=== PATIENT | female | born 1970 | race Two or more races ===

== ENCOUNTER 2024-09-21 17:16 | Inpatient (IN) | payer MEDICAID, SELFPAY ==
--- NOTE | 2024-09-21 | ECG_ITS ---
Test Reason : CP Blood Pressure : / mmHG Vent. Rate : 111 BPM Atrial Rate : 111 BPM P-R Int : 134 ms QRS Dur : 074 ms QT Int : 330 ms P-R-T Axes : 053 017 023 degrees QTc Int : 448 ms Sinus tachycardia Otherwise normal ECG No previous ECGs available Referred By: Amanda Woodson Electronically Signed By:YVES KOHLER MD
--- NOTE | ~2024-09-21 | CT_ITS ---
EXAMINATION: CT ABDOMEN AND PELVIS WITH CONTRAST CLINICAL INFORMATION: Right lower quadrant abdominal pain COMPARISON: None available. TECHNIQUE: Multidetector volumetric images were obtained from the superior aspect of the liver through the pubic symphysis following administration 85 mL of Omnipaque 350 intravenous contrast. Sagittal and coronal reformatted images were obtained on the technologist's workstation. Oral contrast: No This CT examination was performed using dose optimization techniques as appropriate, variously including the following: *Automated exposure control *Adjustment of mA and/or kV according to patient size (this includes techniques or standardized protocols for targeted exams where dose is matched to indication/reason for exam; i.e. extremities or head) *Use of iterative reconstruction technique DLP: 490 mGy-cm FINDINGS: LUNG BASES: Bibasilar atelectasis. LIVER, GALLBLADDER, AND BILIARY TREE: The liver is normal in size, shape, and attenuation. No focal hepatic lesion or biliary ductal dilatation is present. The gallbladder is surgically absent. PANCREAS: Unremarkable. SPLEEN: Unremarkable. ADRENAL GLANDS: Unremarkable. KIDNEYS AND URETERS: Somewhat ill-defined and wedge-shaped areas of hypoattenuation within the upper and lower poles of the right kidney with mild hydroureteronephrosis, perinephric and periureteral stranding. Foci of air are present within the right ureter and renal calyces, and there is area in the nondependent urinary bladder. The left kidney appears normal. BLADDER: No wall thickening. There is air within the anterior superior aspect of the moderately distended bladder. GASTROINTESTINAL TRACT: The small and large bowel are unremarkable. ABDOMINAL WALL: No significant hernia is appreciated. LYMPH NODES: Normal. VASCULAR: Unremarkable. PELVIC VISCERA: Unremarkable. OSSEOUS STRUCTURES: Unremarkable. CT/CT abdomen pelvis w IV con IMPRESSION: 1. Right-sided pyelonephritis with mild hydroureteronephrosis and perinephric/periureteral stranding. Air within the right renal calyces, right ureter, and urinary bladder may be due to recent instrumentation or infection. Fleischner guidelines were followed. Electronically signed by: Ede Traylor MD 09/21/2024 09:58 PM [facility]
--- NOTE | ~2024-09-21 | XR_ITS ---
EXAMINATION: XR CHEST CLINICAL INFORMATION: sob COMPARISON: 09/25/2024 TECHNIQUE: Frontal view of the chest was obtained. FINDINGS: Improved aeration with no focal consolidation, pulmonary edema, or pleural effusion. Stable cardiomediastinal silhouette. XR/XR chest 1V IMPRESSION: No acute cardiopulmonary findings. Electronically signed by: Ede Traylor MD 09/28/2024 02:09 PM [facility]
--- NOTE | ~2024-09-21 | XR_ITS ---
EXAMINATION: XR CHEST CLINICAL INFORMATION: Shortness of breath. COMPARISON: None available. TECHNIQUE: Frontal view of the chest was obtained. FINDINGS: Bilateral diffuse airspace opacities. Lordotic positioning, AP upright portable technique, and low lung volumes limit evaluation of the cardiomediastinal silhouette and lungs. There is no gross pneumothorax. Possible small bilateral pleural effusions. XR/XR chest 1V IMPRESSION: Bilateral diffuse airspace opacities. Possible small bilateral pleural effusions. This study was presented today September 25, 2024 for interpretation. Stat results provided at this time as requested by referring provider. Electronically signed by: Kirstie Sharp MD 09/25/2024 12:57 PM [facility]
[2024-09-21 17:37] VITALS: BP 118/71; PULSE 102; RESP 18; TEMP 36.4; O2SAT 99; BMI 32.2
--- NOTE | 2024-09-21 18:18 | ED.ABDPAIN ---
HPI - Abdominal Pain General Chief Complaint: Abdominal Pain Stated Complaint: Abdominal pain Time Seen by Provider: 09/21/24 18:14 Source: patient Mode of arrival: ambulatory Limitations: no limitations History of Present Illness ED Provider: melinda BUSTOS narrative: Patient is diabetic otherwise healthy complaining of pain with nausea mostly in the right side and mid abdomen had 1 small bowel movement yesterday and vomited 3 times today did not eat much all day today no fever but had chills no cough no shortness a breath on arrival patient noticed to have tachycardia with WBC count of 31,000 Related Data Allergies Allergy/AdvReac Type Severity Reaction Status Date / Time acetaminophen [From Percocet] Allergy Unknown Verified 09/21/24 17:40 oxycodone [From Percocet] Allergy Unknown Verified 09/21/24 17:40 tramadol Allergy Unknown Verified 09/21/24 17:40 Review of Systems Review of Systems Yes all other systems are reviewed and are negative PMFSH Past Medical History Medical History Mixed hyperlipidemia Insulin dependent type 2 diabetes mellitus Social History Social History Smoked in Last 30 Days: Yes Advance Directives: No Advance Directives Information Provided: No Do you have a plan to hurt others: No Plan Physical Exam ED Vital Signs: Vital Signs - 24 hr 09/21/24 17:37 09/21/24 18:48 09/21/24 20:00 Temperature 97.6 F 98.8 F 98.8 F Pulse Rate 102 H 111 H 105 H Respiratory Rate 18 22 H 20 Blood Pressure 118/71 142/77 H 128/78 Pulse Oximetry 99 98 95 Oxygen Delivery Method Room Air Room Air Room Air 09/21/24 22:02 Temperature 98.9 F Pulse Rate 106 H Respiratory Rate 22 H Blood Pressure 100/58 L Pulse Oximetry 92 Oxygen Delivery Method Room Air BMI result Body Mass Index 32.2 Appearance: Alert. Oriented X3. No acute distress. Eyes: PERRLA, No Nystagmus ENT: Pharynx normal. Oral Mucosa dry Neck: Normal inspection. Neck supple. CVS: Normal heart rate and rhythm. Pulses normal. Respiratory: No respiratory distress. Equal air entry bilateral, no wheezing/rales/rhonchi Abdomen: Soft and tenderness right lower abdomen with guarding bowel sounds. Bowel sounds are present, no mass palpable, no CVA tenderness Skin: Skin warm and dry. Normal skin color. Normal skin turgor. Extremities: No lower extremity edema. No calf tenderness Neuro: Oriented X 3. No motor deficit. Medical Decision Making Medical Decision Making [facility] Narrative: Patient with UTI with pyelonephritis with leukocytosis lactic acidosis started on IV fluids and Zosyn meeting the criteria for sepsis not septic shock will admit patient to hospitalist service Differential Diagnosis Differential Diagnoses: The differential diagnosis associated with the presentation includes Appendicitis/diverticulitis/pyelonephritis kidney stone Consult Healthcare Provider Management of the patient was discussed with: Hospitalist Lab Data [facility] Lab Attestation statement: I reviewed the patient's lab results. 09/21/24 18:44 09/21/24 18:44 Labs: Lab Results 09/21/24 09/21/24 09/21/24 Range/Units 18:00 18:44 19:45 WBC 31.1 H* (4.8-10.8) X10*3/uL RBC 4.22 (4.20-5.50) X10*6/uL Hgb 13.5 (12.0-16.0) g/dl Hct 37.8 (37.0-47.0) % MCV 89.6 (80.0-98.0) fL MCH 32.0 (27.0-33.0) pg MCHC 35.7 H (31.0-35.0) g/dl RDW 11.6 (11.0-16.0) % Plt Count 149 L (160-400) X10*3/uL MPV 12.5 H (9.4-12.3) fL Immature Gran % (Auto) 4.8 H (0.0-0.4) % Neut % (Auto) 88.4 H (45-73) % Lymph % (Auto) 2.8 L (20-40) % [place] % (Auto) 3.7 (2-11) % Eos % (Auto) 0.1 (0-4) % Baso % (Auto) 0.2 (0-2) % Lymph # (Auto) 0.9 L (1.2-4.9) X10*3/uL [place] # (Auto) 1.2 (0.1-1.2) X10*3/uL Eos # (Auto) 0.0 (0.0-0.4) X10*3/uL Baso # (Auto) 0.1 (0.0-0.2) X10*3/uL Abs Immat Gran (auto) 1.50 H (0.00-0.03) X10*3/uL Absolute Neuts (auto) 27.5 H (2.0-8.3) x10*3/uL Absolute Nucleated RBC 0.000 (0.0-0.012) X10*3/uL Nucleated RBC % (auto) 0.0 (0.0-0.2) /100WBC Sodium 130 L (135-145) mmol/L Potassium 4.0 (3.3-5.1) mmol/L Chloride 99 (96-108) mmol/L Carbon Dioxide 19 L (22-29) mmol/L Anion Gap 16 (12-20) BUN 19 H (9-16) mg/dL Creatinine 1.47 H (0.5-1.4) mg/dL Estim Creat Clear Calc 40.4 Estimated GFR 37 Random Glucose 466 H* (60-115) mg/dL Lactic Acid 2.7 H* (0.5-2.0) mmol/L Calcium 9.0 (8.4-10.2) mg/dL Total Bilirubin 1.2 H (0.0-1.0) mg/dL AST 71 H (5-31) U/L ALT 64 H (0-31) U/L Alkaline Phosphatase 100 (39-117) U/L Total Protein 7.0 (6.5-8.0) g/dL Albumin 3.7 (3.5-5.0) g/dL Influenza Type A (PCR) NEGATIVE (Negative) Influenza Type B (PCR) NEGATIVE (Negative) RSV RNA Qual (PCR) NEGATIVE (Negative) SARS-CoV-2 RNA (RT-PCR) NEGATIVE (Negative) Independent Interpretation I performed an independent interpretation of an: CT Scan Radiology Impression Discussion of test interpretation with radiology: I have reviewed the radiologist's reading. Radiologist Impression: [address] [address] [address] Scan Report Signed Patient: Jill Cho MR#: [id number] : 1970 Acct:[id number] Age/Sex: 53 / F ADM Date: 09/21/24 Loc: HO.ED Attending Dr: Ordering Physician: Erickson Hernandez MD Date of Service: 09/21/24 Procedure(s): CT abdomen pelvis w IV con Accession Number(s): [id number] cc: CESAR PERALTA; Erickson Hernandez MD~ EXAMINATION: CT ABDOMEN AND PELVIS WITH CONTRAST CLINICAL INFORMATION: Right lower quadrant abdominal pain COMPARISON: None available. TECHNIQUE: Multidetector volumetric images were obtained from the superior aspect of the liver through the pubic symphysis following administration 85 mL of Omnipaque 350 intravenous contrast. Sagittal and coronal reformatted images were obtained on the technologist's workstation. Oral contrast: No This CT examination was performed using dose optimization techniques as appropriate, variously including the following: *Automated exposure control *Adjustment of mA and/or kV according to patient size (this includes techniques or standardized protocols for targeted exams where dose is matched to indication/reason for exam; i.e. extremities or head) *Use of iterative reconstruction technique DLP: 490 mGy-cm FINDINGS: LUNG BASES: Bibasilar atelectasis. LIVER, GALLBLADDER, AND BILIARY TREE: The liver is normal in size, shape, and attenuation. No focal hepatic lesion or biliary ductal dilatation is present. The gallbladder is surgically absent. PANCREAS: Unremarkable. SPLEEN: Unremarkable. ADRENAL GLANDS: Unremarkable. KIDNEYS AND URETERS: Somewhat ill-defined and wedge-shaped areas of hypoattenuation within the upper and lower poles of the right kidney with mild hydroureteronephrosis, perinephric and periureteral stranding. Foci of air are present within the right ureter and renal calyces, and there is area in the nondependent urinary bladder. The left kidney appears normal. BLADDER: No wall thickening. There is air within the anterior superior aspect of the moderately distended bladder. GASTROINTESTINAL TRACT: The small and large bowel are unremarkable. ABDOMINAL WALL: No significant hernia is appreciated. LYMPH NODES: Normal. VASCULAR: Unremarkable. PELVIC VISCERA: Unremarkable. OSSEOUS STRUCTURES: Unremarkable. CT/CT abdomen pelvis w IV con IMPRESSION: 1. Right-sided pyelonephritis with mild hydroureteronephrosis and perinephric/periureteral stranding. Air within the right renal calyces, right ureter, and urinary bladder may be due to recent instrumentation or infection. Fleischner guidelines were followed. Electronically signed by: Ede Traylor MD 09/21/2024 09:58 PM [facility] Medications Administered Generic Name Dose Route Start Last Admin Trade Name Freq PRN Reason Stop Dose Admin Ceftriaxone Sodium 1 gm 09/21/24 22:00 09/21/24 22:16 Ceftriaxone Sodium 1 Gm Vial IVPUSH 1 gm Q24H FERNANDA Administration Enoxaparin Sodium 40 mg 09/21/24 22:00 09/21/24 22:16 Enoxaparin Sodium 40 Mg/0.4 Ml Syringe SUBCUT 40 mg Q24H FERNANDA Administration Insulin Glargine 32 unit 09/21/24 22:30 09/21/24 23:10 Insulin Glargine,Hum.Rec.Anlog 100 Unit/Ml 10 Ml Vial SUBCUT 32 unit BEDTIME FERNANDA Administration Discontinued Medications Generic Name Dose Route Start Last Admin Trade Name Freq PRN Reason Stop Dose Admin Sodium Chloride 1,000 mls @ 999 mls/hr 09/21/24 19:00 09/21/24 21:08 Ns IV 09/21/24 20:00 Infused .Q1H1M ONE Infusion Piperacillin Sod/Tazobactam 50 mls @ 100 mls/hr 09/21/24 19:00 09/21/24 20:59 Sod 3.375 gm/ Sodium Chloride IV 09/21/24 19:29 Infused ONCE ONE Infusion Sodium Chloride 1,000 mls @ 999 mls/hr 09/21/24 19:01 09/21/24 21:08 Ns IV 09/21/24 20:01 Infused .Q1H1M ONE Infusion Piperacillin Sod/Tazobactam 50 mls @ 100 mls/hr 09/21/24 19:45 09/21/24 20:59 Sod 3.375 gm/ Sodium Chloride IV 09/21/24 20:14 Not Given ONCE ONE Lactated Ringer's 1,000 mls @ 999 mls/hr 09/21/24 22:45 09/21/24 23:11 Lr IV 09/21/24 23:45 999 mls/hr .Q1H1M FERNANDA Administration Insulin Human Lispro 10 unit 09/21/24 19:03 09/21/24 19:50 Insulin Lispro 100 Unit/Ml 3 Ml Vial SUBCUT 09/21/24 19:04 10 unit ONCE ONE Administration Iohexol 100 ml 09/21/24 20:24 09/21/24 20:32 Iohexol 350 Mg/Ml 100 Ml Infus..Btl IV 09/21/24 20:25 85 ml ONCE ONE Administration Morphine Sulfate 4 mg 09/21/24 19:01 09/21/24 19:50 Morphine Sulfate 4 Mg/Ml Cartridge IVPUSH 09/21/24 19:02 4 mg ONCE ONE Administration Protocol Morphine Sulfate 4 mg 09/21/24 21:41 09/21/24 21:50 Morphine Sulfate 4 Mg/Ml Cartridge IVPUSH 09/21/24 21:42 4 mg ONCE ONE Administration Protocol Ondansetron HCl 4 mg 09/21/24 18:53 09/21/24 18:55 Ondansetron Hcl 4 Mg/2 Ml Vial IVPUSH 09/21/24 18:54 4 mg ONCE ONE Administration Discharge Plan Discharge Clinical Impression: Pyelonephritis of right kidney Patient Disposition: Admitted As Inpatient
[2024-09-21 18:48] VITALS: BP 142/77; PULSE 111; RESP 22; TEMP 37.1; O2SAT 98
[2024-09-21 18:48] LABS: Basophils Absolute Auto 0.1 X10*3/uL (0.0-0.2); Basophils Percent Auto 0.2 % (0-2); Eosinophils Percent Auto 0.1 % (0-4); Hematocrit 37.8 % (37.0-47.0); Hemoglobin 13.5 g/dl (12.0-16.0); Imm Gran Pct Auto 4.8 % (0.0-0.4); Lymphocytes Absolute Auto 0.9 X10*3/uL (1.2-4.9); Lymphocytes Percent Auto 2.8 % (20-40); Mean Corpuscular HGB Conc 35.7 g/dl (31.0-35.0); Mean Corpuscular Volume 89.6 fL (80.0-98.0); Mean Platelet Volume 12.5 fL (9.4-12.3); Monocytes Absolute Auto 1.2 X10*3/uL (0.1-1.2); Monocytes Percent Auto 3.7 % (2-11); Neutrophils Absolute Auto 27.5 x10*3/uL (2.0-8.3); Neutrophils Percent Auto 88.4 % (45-73); Platelet Count 149 X10*3/uL (160-400); Red Blood Count 4.22 X10*6/uL (4.20-5.50); Red Cell Distribution Width 11.6 % (11.0-16.0); SCAN SMEAR FLAG 1
[2024-09-21 18:49] LABS: MANUAL DIFF FLAG NO
[2024-09-21 18:52] LABS: White Blood Count 31.1 X10*3/uL (4.8-10.8)
[2024-09-21 18:55] LABS: Influenza A PCR NEGATIVE (Negative); Influenza B PCR NEGATIVE (Negative); Resp Syncy Virus RNA Qual PCR NEGATIVE (Negative); SARS COV2 PCR INHOUSE NEGATIVE (Negative)
[2024-09-21] MEDS: ondansetron HCL 4 MG/2 ML VIAL IVPUSH (18:55)
[2024-09-21 19:04] LABS: Alanine Aminotransferase 64 U/L (0-31); Albumin Level 3.7 g/dL (3.5-5.0); Alkaline Phosphatase 100 U/L (39-117); Anion Gap 16 (12-20); Aspartate Amino Transferase 71 U/L (5-31); Bilirubin Total 1.2 mg/dL (0.0-1.0); Blood Urea Nitrogen 19 mg/dL (9-16); Carbon Dioxide 19 mmol/L (22-29); Chloride 99 mmol/L (96-108); Creatinine Clr Calc Pharmacy 40.4; Estimated Glomerular Filt Rate 37; Glucose Random 466 mg/dL (60-115); Sodium 130 mmol/L (135-145)
[2024-09-21] MEDS: Piperacillin Sodium/Tazobactam 3.375 GM in 0.9 % Sodium Chloride 50 ML IV (19:45)
[2024-09-21] MEDS: 0.9 % Sodium Chloride 1,000 ML 999 ML IV ×2 (19:49→19:50)
[2024-09-21] MEDS: Morphine Sulfate 4 MG/ML CARTRIDGE IVPUSH ×2 (19:50→21:50)
[2024-09-21] MEDS: Insulin Lispro 100 UNIT/ML 3 ML VIAL 10 UNIT SUBCUT (19:50)
[2024-09-21 20:00] VITALS: BP 128/78; PULSE 105; RESP 20; TEMP 37.1; O2SAT 95
--- NOTE | 2024-09-21 20:00 | PC.NURSE ---
Pt difficult blood draw, call the lab and spoke to Delia and notified her blood culture being sent and amount collected. Okay to send. pt placed on bedside monitor and medicated per dec.
[2024-09-21 20:30] LABS: Lactic Acid 2.7 mmol/L (0.5-2.0)
[2024-09-21] MEDS: iohexoL 350 MG/ML 100 ML INFUS..BTL IV (20:32)
--- NOTE | 2024-09-21 20:42 | PC.NURSE ---
critical lab reported Dr. Linton, lactic 2.7.
[2024-09-21 21:50] LABS: Reflex Lactate? Lactic Acid Added
--- NOTE | 2024-09-21 21:55 | PC.NURSE ---
Medicated per pain management.
[2024-09-21 22:02] VITALS: BP 100/58; PULSE 106; RESP 22; TEMP 37.2; O2SAT 92
--- NOTE | 2024-09-21 22:13 | P.HPHOSP_ITS ---
History of Present Illness Date of Service: 09/21/24 Chief Complaint: Abd pain This is a 53-year-old female with pertinent history of insulin-dependent diabetes mellitus, mixed hyperlipidemia who presents to the emergency department for evaluation of abdominal pain. Patient states she started having right-sided abdominal pain 1 day prior to presentation. It was in the right flank region going to the back, constant, progressive and without any relieving factors. No history of similar pains in the past. Did have a UTI many years ago. Has associated chills, nausea and nonbloody emesis. Denies dysuria but does have increased urinary frequency. No change in color or odor of urine that she noticed. No documented fever, chest pain, palpitations, shortness of breath, changes in bowel habits. In the emergency department, patient was found to be septic with white count 31.1. Imaging with right-sided pyelonephritis. Review of Systems 2 Constitutional: Constitutional: Reports chills, Reports fatigue and Reports malaise Cardiovascular: Cardiovascular: Reports no additional cardiovascular complaints Respiratory: Respiratory: Reports no additional respiratory complaints Gastrointestinal: Gastrointestinal: Reports abdominal pain, Reports nausea and Reports vomiting Genitourinary: Genitourinary: Reports urinary urgency Endocrine: Endocrine: Reports fatigue PMFSH Medical History Mixed hyperlipidemia Insulin dependent type 2 diabetes mellitus Pertinent family history: No family history of early CAD Social History Smoked in Last 30 Days: Yes Advance Directives: No Advance Directives Information Provided: No Do you have a plan to hurt others: No Plan Meds Allergies Allergy/AdvReac Type Severity Reaction Status Date / Time acetaminophen [From Percocet] Allergy Unknown Verified 09/21/24 17:40 oxycodone [From Percocet] Allergy Unknown Verified 09/21/24 17:40 tramadol Allergy Unknown Verified 09/21/24 17:40 Active Medications: Current Medications Acetaminophen (Acetaminophen 325 Mg Tablet) 650 mg PO Q6H PRN PRN Reason: Pain, Mild (Pain Scale 1-3), fever or headache Calcium Carbonate (Calcium Carbonate 750 Mg Tab.Chew) 750 mg PO Q4H PRN PRN Reason: Heartburn Ceftriaxone Sodium (Ceftriaxone Sodium 1 Gm Vial) 1 gm IVPUSH Q24H FERNANDA Enoxaparin Sodium (Enoxaparin Sodium 40 Mg/0.4 Ml Syringe) 40 mg SUBCUT Q24H FERNANDA Glucose (Glucose Gel 15 Gm Gel..Gram.) 15 gm PO Q15M PRN; Protocol PRN Reason: per Hypoglycemia Standing Ord. Dextrose (D10) 250 mls @ 750 mls/hr IV Q15M PRN; Protocol PRN Reason: per Hypoglycemia Standing Ord. Insulin Human Lispro (Insulin Lispro 100 Unit/Ml 3 Ml Vial) 0 unit SUBCUT QIDACHS FERNANDA; Protocol Magnesium Hydroxide (Milk Of Magnesia 30 Ml Oral.Susp) 30 ml PO DAILY PRN PRN Reason: Constipation Melatonin (Melatonin 3 Mg Tablet) 6 mg PO BEDTIME PRN PRN Reason: Insomnia Morphine Sulfate (Morphine Sulfate 4 Mg/Ml Cartridge) 4 mg IVPUSH Q4H PRN; Protocol PRN Reason: Pain, Severe (Pain Scale 7-10) Ondansetron HCl (Ondansetron Hcl 4 Mg/2 Ml Vial) 4 mg IVPUSH Q8H PRN PRN Reason: Nausea and Vomiting Sodium Chloride (0.9 % Sodium Chloride Flush 3 Ml Syringe) 3 ml IVFLUSH QSHIFT [facility] Physical Exam 2 Vital Signs and Narrative: Vital Signs: Last Vital Signs Temp 98.8 F 09/21/24 20:00 Pulse 105 H 09/21/24 20:00 Resp 20 09/21/24 20:00 BP 128/78 09/21/24 20:00 Pulse Ox 95 09/21/24 20:00 O2 Del Method Room Air 09/21/24 20:00 BMI result Body Mass Index 32.2 Middle-aged female lying in bed in no distress Neck supple, no JVD Regular rate and rhythm, S1-S2 heard Regular breath sounds bilaterally, no wheezing or crackles appreciated Abdomen with right-sided CVA tenderness Patient is awake, alert and oriented to self, place, time and person ; no focal motor deficit Psych: Normal mood No pedal edema Results Labs 09/21/24 18:44 09/21/24 18:44 Labs: Laboratory Results - last 24 hr 09/21/24 09/21/24 09/21/24 18:00 18:44 19:45 MCV 89.6 MCH 32.0 MCHC 35.7 H RDW 11.6 Plt Count 149 L MPV 12.5 H Immature Gran % (Auto) 4.8 H Neut % (Auto) 88.4 H Lymph % (Auto) 2.8 L [place] % (Auto) 3.7 Eos % (Auto) 0.1 Baso % (Auto) 0.2 Lymph # (Auto) 0.9 L [place] # (Auto) 1.2 Eos # (Auto) 0.0 Baso # (Auto) 0.1 Abs Immat Gran (auto) 1.50 H Absolute Neuts (auto) 27.5 H Absolute Nucleated RBC 0.000 Nucleated RBC % (auto) 0.0 Anion Gap 16 Estim Creat Clear Calc 40.4 Estimated GFR 37 Random Glucose 466 H* Lactic Acid 2.7 H* Calcium 9.0 Total Bilirubin 1.2 H AST 71 H ALT 64 H Alkaline Phosphatase 100 Total Protein 7.0 Albumin 3.7 Influenza Type A (PCR) NEGATIVE Influenza Type B (PCR) NEGATIVE RSV RNA Qual (PCR) NEGATIVE SARS-CoV-2 RNA (RT-PCR) NEGATIVE Imaging Radiologist's Impressions: Impressions Abdomen/Pelvis CT 09/21/24 19:00 IMPRESSION: 1. Right-sided pyelonephritis with mild hydroureteronephrosis and perinephric/periureteral stranding. Air within the right renal calyces, right ureter, and urinary bladder may be due to recent instrumentation or infection. Fleischner guidelines were followed. Electronically signed by: Ede Traylor MD 09/21/2024 09:58 PM [facility] Assessment and Plan (1) Sepsis: Status: Acute (2) Pyelonephritis of right kidney: Status: Acute (3) Hyperglycemia: Status: Acute Plan This is a 53-year-old female with pertinent history of insulin-dependent diabetes mellitus, mixed hyperlipidemia who presents to the emergency department for evaluation of abdominal pain. #. Severe sepsis due to right-sided pyelonephritis: Resuscitated with IV crystalloids. Lactic acid and blood culture obtained. Initiating empiric IV Rocephin. UA and urine culture pending #. Acute lactic acidosis due to sepsis #. Elevated creatinine: Unknown baseline. JACINTA versus CKD. Monitor creatinine urine output with crystalloid resuscitation. Avoid nephrotoxins #. Insulin-dependent diabetes mellitus with hyperglycemia: Initiating basal plus insulin regimen #. Obesity: Counseled regarding diet and exercise Med rec pending DVT prophylaxis: Lovenox Full code Admit as inpatient and will require two night minimum hospital stay for IV antibiotics (as above), which is not possible in a lesser acute setting. Quality Stroke Does the patient have a stroke diagnosis?: No VTE Prior VTE?: No VTE Risk Level:: Medical - moderate - high VTE Device Contraindication: Treatment Not Indicated VTE Drug Contraindication: N/A - Med Ordered
[2024-09-21] MEDS: Enoxaparin Sodium 40 MG/0.4 ML SYRINGE SUBCUT (22:16)
[2024-09-21] MEDS: cefTRIAXone sodium 1 GM VIAL IVPUSH (22:16)
[2024-09-21 22:18] LABS: Appearance Urine Cloudy; Color Urine Yellow; Glucose Urine UA >=1000 mg/dL (Negative); Leukocyte Esterase Urine Small (1+) (Negative); Nitrite Urine Positive (Negative); PH 5.5 (5.0-9.0); Specific Gravity - Urine >= 1.030 (1.005-1.025); UMIC TRIGGER UACC YES; Urine Blood Small (1+) (Negative); Urine Ketones 40 mg/dL (Negative); Urine Protein Trace mg/dL (Neg-Trace)
[2024-09-21 22:31] LABS: Bacteria Urine 4+ (None Seen); Hyaline Casts Urine 0-2 /LPF (0-2); RBC Urine 0-2 /HPF (0-2); UACC Culture Trigger YES
[2024-09-21 22:35] LABS: ~Lactic Acid-LAB USE ONLY 2.1 mmol/L (0.5-2.0)
[2024-09-21 23:06] LABS: Cancel Lactic Acid Canceled
[2024-09-21] MEDS: Insulin Glargine,Hum.rec.anlog 100 UNIT/ML 10 ML VIAL 32 UNIT SUBCUT (23:10)
[2024-09-21] MEDS: Lactated Ringers 1,000 ML 999 ML IV (23:11)
--- NOTE | 2024-09-21 23:14 | PC.NURSE ---
Medicated per danielle, blood pressure soft notified Dr. Zaman
--- NOTE | 2024-09-21 23:53 | PC.NURSE ---
pt does not have medication list. Pt reports she goes to [facility], not open at this time.
[2024-09-22] VITALS (7 sets, daily range): BP systolic 98–132; BP diastolic 53–68; PULSE 106–122; RESP 16–18; TEMP 36.6–37.7; O2SAT 92–95; BMI 28.3
[2024-09-22 00:41] LABS: Glucose, Whole Blood 374 mg/dL (60-115)
[2024-09-22] MEDS: 0.9 % Sodium Chloride Flush 3 ML SYRINGE IVFLUSH ×3 (01:45→21:08)
[2024-09-22] MEDS: Flu Vacc TS2024-25(6mos up)/PF 0.5 ML SYRINGE IM (02:11)
--- NOTE | 2024-09-22 03:51 | PC.NURSE ---
0200; New admission to Room 354. Patient with tachycardia HR 109, and soft bp 98/56. Patient with similar vital signs in the ED previously. Dr Zaman made aware of patient's vitals. No new orders at this time.
[2024-09-22] MEDS: ondansetron HCL 4 MG/2 ML VIAL IVPUSH ×2 (04:30→10:31)
--- NOTE | 2024-09-22 06:41 | PM.EVENT ---
Event Note Date of Service: 09/22/24 Event Note: Lab reported 1st set of Blood culture positive for Gram-negative rods . Will increase ceftriaxone to 2g daily and consult ID Time Spent With Patient Time: Total time managing care of this patient today ____ minutes.
[2024-09-22] MEDS: Morphine Sulfate 4 MG/ML CARTRIDGE IVPUSH ×3 (07:54→15:29)
[2024-09-22] MEDS: cefTRIAXone sodium 1 GM VIAL IVPUSH (07:54)
[2024-09-22] MEDS: Insulin Lispro 100 UNIT/ML 3 ML VIAL SUBCUT ×4 (07:55→21:07)
[2024-09-22 07:58] LABS: Glucose, Whole Blood 355 mg/dL (60-115)
[2024-09-22 08:07] LABS: Hematocrit 35.2 % (37.0-47.0); Hemoglobin 12.2 g/dl (12.0-16.0); Mean Corpuscular HGB Conc 34.7 g/dl (31.0-35.0); Mean Corpuscular Hemoglobin 31.9 pg (27.0-33.0); Mean Corpuscular Volume 91.9 fL (80.0-98.0); Mean Platelet Volume 13.5 fL (9.4-12.3); Platelet Count 127 X10*3/uL (160-400); Red Blood Count 3.83 X10*6/uL (4.20-5.50); Red Cell Distribution Width 11.9 % (11.0-16.0)
[2024-09-22 08:43] LABS: Band Neutrophils Percent 20 % (3-5); Monocytes Percent Manual 4 % (2-11); Neutrophils Percent Manual 76 % (45-73)
[2024-09-22 08:45] LABS: Burr Cells 1+ (0-2) /OIF; RBC Morphology NOTED; Toxic Vacuolation PRESENT
[2024-09-22 08:46] LABS: Platelet Estimate SLIGHTLY DECREASED (NORMAL); Platelet Morphology Comment NORMAL
[2024-09-22 09:00] LABS: Monocytes Absolute Manual 1.3 X10*3/uL (0.1-1.2); Neutrophils Absolute Manual 30.6 X10*3/uL (2.0-8.3); White Blood Count 31.9 X10*3/uL (4.8-10.8)
[2024-09-22 09:07] LABS: Anion Gap 16 (12-20); Blood Urea Nitrogen 18 mg/dL (9-16); Calcium 8.3 mg/dL (8.4-10.2); Carbon Dioxide 19 mmol/L (22-29); Chloride 102 mmol/L (96-108); Creatinine Clr Calc Pharmacy 42.5; Estimated Glomerular Filt Rate 43; Glucose Random 373 mg/dL (60-115); Potassium 4.3 mmol/L (3.3-5.1); Sodium 133 mmol/L (135-145)
--- NOTE | 2024-09-22 09:57 | P.PNIM_ITS ---
Subjective Subjective Date of Service: 09/22/24 Review of Systems Follow up Pyelo nausea and abd pain no appetite Physical Exam 2 Vital Signs: Vital Signs: Last Vital Signs Temp 98.5 F 09/22/24 07:45 Pulse 110 H 09/22/24 07:45 Resp 16 09/22/24 07:45 BP 131/65 09/22/24 07:45 Pulse Ox 92 09/22/24 07:45 O2 Del Method Room Air 09/22/24 07:45 BMI result Body Mass Index 28.3 Appearing in no acute distress lung sounds are clear to auscultation heart regular rate rhythm, clear S1, S2 positive bowel sounds, abdomen is soft, nontender neuro patient is alert x3, no focal deficits Objective Data Active Medications Acetaminophen (Acetaminophen 325 Mg Tablet) 650 mg PO Q6H PRN PRN Reason: Pain, Mild (Pain Scale 1-3), fever or headache Calcium Carbonate (Calcium Carbonate 750 Mg Tab.Chew) 750 mg PO Q4H PRN PRN Reason: Heartburn Ceftriaxone Sodium (Ceftriaxone Sodium 2 Gm Vial) 2 gm IVPUSH Q24H [facility] Enoxaparin Sodium (Enoxaparin Sodium 40 Mg/0.4 Ml Syringe) 40 mg SUBCUT Q24H [facility] Last Admin: 09/21/24 22:16 Dose: 40 mg Documented By: MASON Glucose (Glucose Gel 15 Gm Gel..Gram.) 15 gm PO Q15M PRN; Protocol PRN Reason: per Hypoglycemia Standing Ord. Dextrose (D10) 250 mls @ 750 mls/hr IV Q15M PRN; Protocol PRN Reason: per Hypoglycemia Standing Ord. Insulin Glargine (Insulin Glargine,Hum.Rec.Anlog 100 Unit/Ml 10 Ml Vial) 32 unit SUBCUT BEDTIME [facility] Last Admin: 09/21/24 23:10 Dose: 32 unit Documented By: MASON Insulin Human Lispro (Insulin Lispro 100 Unit/Ml 3 Ml Vial) 0 unit SUBCUT QIDACHS [facility]; Protocol Last Admin: 09/22/24 07:55 Dose: 10 unit Documented By: DOMINIK Magnesium Hydroxide (Milk Of Magnesia 30 Ml Oral.Susp) 30 ml PO DAILY PRN PRN Reason: Constipation Melatonin (Melatonin 3 Mg Tablet) 6 mg PO BEDTIME PRN PRN Reason: Insomnia Morphine Sulfate (Morphine Sulfate 4 Mg/Ml Cartridge) 4 mg IVPUSH Q4H PRN; Protocol PRN Reason: Pain, Severe (Pain Scale 7-10) Last Admin: 09/22/24 07:54 Dose: 4 mg Documented By: DOMINIK Ondansetron HCl (Ondansetron Hcl 4 Mg/2 Ml Vial) 4 mg IVPUSH Q8H PRN PRN Reason: Nausea and Vomiting Last Admin: 09/22/24 04:30 Dose: 4 mg Documented By: AURELIO Sodium Chloride (0.9 % Sodium Chloride Flush 3 Ml Syringe) 3 ml IVFLUSH [facility] Last Admin: 09/22/24 08:00 Dose: 3 ml Documented By: DOMINIK Labs 09/22/24 06:26 09/22/24 06:26 Labs: Laboratory Results - last 24 hr 09/21/24 09/21/24 09/21/24 18:00 18:44 19:45 MCV 89.6 MCH 32.0 MCHC 35.7 H RDW 11.6 Plt Count 149 L MPV 12.5 H Immature Gran % (Auto) 4.8 H Neut % (Auto) 88.4 H Lymph % (Auto) 2.8 L Amelia % (Auto) 3.7 Eos % (Auto) 0.1 Baso % (Auto) 0.2 Lymph # (Auto) 0.9 L Amelia # (Auto) 1.2 Eos # (Auto) 0.0 Baso # (Auto) 0.1 Abs Immat Gran (auto) 1.50 H Absolute Neuts (auto) 27.5 H Absolute Nucleated RBC 0.000 Nucleated RBC % (auto) 0.0 Neutrophils % (Manual) Band Neutrophils % Monocytes % (Manual) Abs Neuts (Manual) Monocytes # (Manual) Toxic Vacuolation Platelet Estimate Plt Morphology Comment RBC Morphology Teri Cells Anion Gap 16 Estim Creat Clear Calc 40.4 Estimated GFR 37 POC Glucose Random Glucose 466 H* Lactic Acid 2.7 H* Lactic Acid F/U @ 2Hr Calcium 9.0 Total Bilirubin 1.2 H AST 71 H ALT 64 H Alkaline Phosphatase 100 Total Protein 7.0 Albumin 3.7 Urine Color Urine Appearance Urine pH Ur Specific [place] Urine Protein Urine Glucose (UA) Urine Ketones Urine Blood Urine Nitrite Ur Leukocyte Esterase Urine RBC Urine WBC Ur Squamous Epith Cells Urine Bacteria Hyaline Casts Influenza Type A (PCR) NEGATIVE Influenza Type B (PCR) NEGATIVE RSV RNA Qual (PCR) NEGATIVE SARS-CoV-2 RNA (RT-PCR) NEGATIVE 09/21/24 09/21/24 09/22/24 22:10 23:05 06:26 MCV 91.9 MCH 31.9 MCHC 34.7 RDW 11.9 Plt Count 127 L MPV 13.5 H Immature Gran % (Auto) Cancelled Neut % (Auto) Cancelled Lymph % (Auto) Cancelled Amelia % (Auto) Cancelled Eos % (Auto) Cancelled Baso % (Auto) Cancelled Lymph # (Auto) Cancelled Amelia # (Auto) Cancelled Eos # (Auto) Cancelled Baso # (Auto) Cancelled Abs Immat Gran (auto) Cancelled Absolute Neuts (auto) Cancelled Absolute Nucleated RBC 0.000 Nucleated RBC % (auto) 0.0 Neutrophils % (Manual) 76 H Band Neutrophils % 20 H Monocytes % (Manual) 4 Abs Neuts (Manual) 30.6 H Monocytes # (Manual) 1.3 H Toxic Vacuolation PRESENT Platelet Estimate SLIGHTLY DECREASED Plt Morphology Comment NORMAL RBC Morphology NOTED [place] Cells 1+ (0-2) Anion Gap 16 Estim Creat Clear Calc 42.5 Estimated GFR 43 POC Glucose 374 H* Random Glucose 373 H* Lactic Acid Lactic Acid F/U @ 2Hr 2.1 H* Calcium 8.3 L D Total Bilirubin AST ALT Alkaline Phosphatase Total Protein Albumin Urine Color Yellow Urine Appearance Cloudy Urine pH 5.5 Ur Specific [place] >= 1.030 H Urine Protein Trace Urine Glucose (UA) >=1000 H Urine Ketones 40 Urine Blood Small (1+) H Urine Nitrite Positive H Ur Leukocyte Esterase Small (1+) H Urine RBC 0-2 Urine WBC 11-20 Ur Squamous Epith Cells 6-10 Urine Bacteria 4+ Hyaline Casts 0-2 Influenza Type A (PCR) Influenza Type B (PCR) RSV RNA Qual (PCR) SARS-CoV-2 RNA (RT-PCR) 09/22/24 07:50 MCV MCH MCHC RDW Plt Count MPV Immature Gran % (Auto) Neut % (Auto) Lymph % (Auto) Amelia % (Auto) Eos % (Auto) Baso % (Auto) Lymph # (Auto) Amelia # (Auto) Eos # (Auto) Baso # (Auto) Abs Immat Gran (auto) Absolute Neuts (auto) Absolute Nucleated RBC Nucleated RBC % (auto) Neutrophils % (Manual) Band Neutrophils % Monocytes % (Manual) Abs Neuts (Manual) Monocytes # (Manual) Toxic Vacuolation Platelet Estimate Plt Morphology Comment RBC Morphology [place] Cells Anion Gap Estim Creat Clear Calc Estimated GFR POC Glucose 355 H* Random Glucose Lactic Acid Lactic Acid F/U @ 2Hr Calcium Total Bilirubin AST ALT Alkaline Phosphatase Total Protein Albumin Urine Color Urine Appearance Urine pH Ur Specific [place] Urine Protein Urine Glucose (UA) Urine Ketones Urine Blood Urine Nitrite Ur Leukocyte Esterase Urine RBC Urine WBC Ur Squamous Epith Cells Urine Bacteria Hyaline Casts Influenza Type A (PCR) Influenza Type B (PCR) RSV RNA Qual (PCR) SARS-CoV-2 RNA (RT-PCR) Microbiology Microbiology Results: Microbiology 09/21/24 22:10 Urine Culture - Preliminary Urine clean catch - Clean Catch Midstream Culture in progress. 09/21/24 19:45 Blood Culture - Preliminary Blood - Venous Prelim: GNR Gram Stain only 09/21/24 19:45 Blood Culture - Preliminary Blood - Venous Prelim: GNR Gram Stain only Assessment and Plan (1) Pyelonephritis of right kidney: Status: Acute Plan 53-year-old female with pertinent history of insulin-dependent diabetes mellitus, mixed hyperlipidemia who presents to the emergency department for evaluation of abdominal pain. GNR bacteremia continue Rocephin 2gm follow final cx Severe sepsis due to right-sided pyelonephritis tachycardia, leukocytosis, lactic acidosis continue IV crystalloids. continue IV Rocephin. antiemetics prn Urine cx pending Acute lactic acidosis due to sepsis Elevated creatinine Unknown baseline. JACINTA versus CKD. Monitor creatinine urine output with crystalloid resuscitation. Avoid nephrotoxins Insulin-dependent diabetes mellitus with hyperglycemia Initiating basal plus insulin regimen Obesity. BMI 28.3 Counseled regarding diet and exercise DVT prophylaxis: Lovenox Full code Quality Stroke Does the patient have a stroke diagnosis?: No VTE Prior VTE?: No VTE Risk Level:: Medical - moderate - high VTE Device Contraindication: Treatment Not Indicated VTE Drug Contraindication: N/A - Med Ordered
--- NOTE | 2024-09-22 09:58 | PHA.MEDREC ---
Pharmacy Consult ? Medication Reconciliation Pharmacy has completed the medication reconciliation. Spoke to patient to confirm medication list. Patient said she takes naproxen 500 mg bid prn, lantus 40 units at bedtime and metformin 850 mg bid (there's only pharmacy claim for metformin ER 750 mg but pt is adamant that she takes 850 mg bid). Last dose of these meds was about 2 days ago. She said she takes ozempic but unable to confirm dose, day of the week that she takes it nor when the last dose was. She said she no longer takes atorvastatin.
[2024-09-22] MEDS: Lactated Ringers 1,000 ML 100 ML IVCONT ×2 (10:31→19:24)
[2024-09-22 11:19] LABS: Glucose, Whole Blood 302 mg/dL (60-115)
[2024-09-22] MEDS: Acetaminophen 325 MG TABLET 650 MG PO (15:28)
[2024-09-22 16:25] LABS: Glucose, Whole Blood 288 mg/dL (60-115)
--- NOTE | 2024-09-22 16:29 | MHC.CM.PN ---
CM MET WITH PT AND FAMILY AT BEDSIDE PT LIVES WITH HER AND IS INDEPENDENT WITH CARE SHE HAS NO DME AND NO SERVICES SHE WILL COMPLETE A HCP NAMING HER NIECE, LILY GAYTAN, HER AGENT PCP: ANGIE PERALTA DCP: HOME NO SERVICES VIA FAMILY TRANSPORT
--- NOTE | 2024-09-22 17:04 | PC.NURSE ---
MILANA Woodson notified of elevated HR- 120. Waiting on any new orders.
[2024-09-22 20:21] LABS: Glucose, Whole Blood 220 mg/dL (60-115)
[2024-09-22] MEDS: Enoxaparin Sodium 40 MG/0.4 ML SYRINGE SUBCUT (21:05)
[2024-09-22] MEDS: Insulin Glargine,Hum.rec.anlog 100 UNIT/ML 10 ML VIAL 32 UNIT SUBCUT (21:06)
[2024-09-22] MEDS: cefTRIAXone sodium 2 GM VIAL IVPUSH (21:08)
[2024-09-23] VITALS (7 sets, daily range): BP systolic 103–121; BP diastolic 54–65; PULSE 108–119; RESP 17–26; TEMP 36.7–37.6; O2SAT 90–95
--- NOTE | 2024-09-23 00:02 | P.CNID_ITS ---
History of Present Illness Data of Consult Service Date: 09/22/24 Requesting physician: Amanda Woodson Primary Care Provider: SUZE Daniels HPI Reason for consult: sepsis,tachycardia and leukocytosis She presents with nausea and vomiting for a day. She has gram negative rods x2 on 09/21. She was given piperacillin/tazobactam in ER and transitioned down to Ceftriaxone. She has leukocytosis to 31,000 both days with no improvement. CT scan shows right pyelonephritis with mild hydroureteronephrosis and perinephric stranding and air bladder thought to be due to instrumentation. She doesnt feel any better today and family is concerned. Review of Systems 2 Review of Systems: Yes all other systems are reviewed and are negative Gastrointestinal: Gastrointestinal: Reports abdominal pain PMFSH Past Medical History Medical History Mixed hyperlipidemia Insulin dependent type 2 diabetes mellitus Family History Family history: reviewed and not pertinent Social History Social History Household Members: Spouse Housing: House Do you presently have visiting nurse or other home services: No Patient Tobacco Use Status: Current everyday Tobacco user Tobacco use type: Cigarette Cigarettes Per Day: 6 Years Smoked: 40 Smoked in Last 30 Days: Yes Patient Interested in Nicotine Replacement: Yes Use of substances other than those prescribed or required for medical reasons: No Currently Displaying Signs/Symptoms of Drug Intoxication Withdrawal: No Have you been hit, kicked, punched, or otherwise hurt by someone within the past year? If so, by whom?: No Do you feel safe in your current relationship?: Yes Is there a partner from a previous relationship who is making you feel unsafe now?: No Are you made to feel afraid or neglected: No Advance Directives: No Advance Directives Information Provided: No Do you have a plan to hurt others: No Plan Recently lost weight without trying: Unsure Nutrition Risks: No Nutritional Risk Patient : No Meds Allergies Allergy/AdvReac Type Severity Reaction Status Date / Time acetaminophen [From Percocet] Allergy Unknown Verified 09/21/24 17:40 oxycodone [From Percocet] Allergy Unknown Verified 09/21/24 17:40 tramadol Allergy Unknown Verified 09/21/24 17:40 Active Medications: Current Medications Acetaminophen (Acetaminophen 325 Mg Tablet) 650 mg PO Q6H PRN PRN Reason: Pain, Mild (Pain Scale 1-3), fever or headache Last Admin: 09/22/24 15:28 Dose: 650 mg Calcium Carbonate (Calcium Carbonate 750 Mg Tab.Chew) 750 mg PO Q4H PRN PRN Reason: Heartburn Enoxaparin Sodium (Enoxaparin Sodium 40 Mg/0.4 Ml Syringe) 40 mg SUBCUT Q24H [facility] Last Admin: 09/22/24 21:05 Dose: 40 mg Glucose (Glucose Gel 15 Gm Gel..Gram.) 15 gm PO Q15M PRN; Protocol PRN Reason: per Hypoglycemia Standing Ord. Dextrose (D10) 250 mls @ 750 mls/hr IV Q15M PRN; Protocol PRN Reason: per Hypoglycemia Standing Ord. Lactated Ringer's (Lr) 1,000 mls @ 100 mls/hr IVCONT .Q10H [facility] Last Admin: 09/22/24 19:24 Dose: 100 mls/hr Insulin Glargine (Insulin Glargine,Hum.Rec.Anlog 100 Unit/Ml 10 Ml Vial) 32 unit SUBCUT BEDTIME [facility] Last Admin: 09/22/24 21:06 Dose: 32 unit Insulin Human Lispro (Insulin Lispro 100 Unit/Ml 3 Ml Vial) 0 unit SUBCUT QIDACHS [facility]; Protocol Last Admin: 09/22/24 21:07 Dose: 4 unit Magnesium Hydroxide (Milk Of Magnesia 30 Ml Oral.Susp) 30 ml PO DAILY PRN PRN Reason: Constipation Melatonin (Melatonin 3 Mg Tablet) 6 mg PO BEDTIME PRN PRN Reason: Insomnia Morphine Sulfate (Morphine Sulfate 4 Mg/Ml Cartridge) 4 mg IVPUSH Q4H PRN; Protocol PRN Reason: Pain, Severe (Pain Scale 7-10) Last Admin: 09/22/24 15:29 Dose: 4 mg Ondansetron HCl (Ondansetron Hcl 4 Mg/2 Ml Vial) 4 mg IVPUSH Q4H PRN PRN Reason: Nausea and Vomiting Last Admin: 09/22/24 10:31 Dose: 4 mg Sodium Chloride (0.9 % Sodium Chloride Flush 3 Ml Syringe) [facility] Last Admin: 09/22/24 21:08 Dose: 3 ml Home Medications ?Medication ?Instructions ?Recorded ?Confirmed ?Last Taken ?Type insulin glargine 100 unit/mL (3 40 unit subcut BEDTIME 09/22/24 09/22/24 09/20/24 History mL) subcutaneous pen (Lantus Solostar U-100 Insulin) metformin 850 mg tablet 850 mg PO BID 09/22/24 09/22/24 09/20/24 History naproxen 500 mg tablet 500 mg PO BID PRN Pain 09/22/24 09/22/24 Unknown History Physical Exam 2 Vital Signs: Vital Signs: Last Vital Signs Temp 99.8 F 09/22/24 19:24 Pulse 122 H 09/22/24 19:24 Resp 17 09/22/24 19:24 BP 112/56 L 09/22/24 19:24 Pulse Ox 95 09/22/24 19:24 O2 Del Method Room Air 09/22/24 19:24 BMI result Body Mass Index 28.3 Const: General: cooperative HEENT: Head: Yes normal to inspection Face and sinus: Yes normal facial exam Mouth: Normal oral and palatal mucosa present Teeth and gingiva: d entition normal Eyes: General: appearance normal, both eyes and all related structures P upils: Equal, round and reactive pupils present Resp: Effort & Inspection: normal respiratory effort Cardio: Rate: regular rate Rhythm: regular rhythm GI: Other: discomfort right flank area Palpation (GI): Soft to palpation and nontender : General: Yes no CVA tenderness Back/Spine/Pelvis: Back: no CVA tenderness Skin: General skin exam: no rashes or lesions noted Neuro: General: moves all extremities Cranial nerves: Yes Equal, round and reactive pupils present Extrem: General: Yes normal to inspection Psych: Appearance: grossly normal Results Labs 09/22/24 06:26 09/22/24 06:26 Labs: Short CBC 09/22/24 Range/Units 06:26 WBC 31.9 H* (4.8-10.8) X10*3/uL Hgb 12.2 (12.0-16.0) g/dl Hct 35.2 L (37.0-47.0) % Plt Count 127 L (160-400) X10*3/uL BMP 09/22/24 06:26 Sodium 133 L Potassium 4.3 Chloride 102 Carbon Dioxide 19 L BUN 18 H Creatinine 1.31 Calcium 8.3 L D Microbiology Microbiology Results: Microbiology 09/21/24 22:10 Urine clean catch - Clean Catch Midstream Urine Culture - Preliminary Culture in progress. 09/21/24 19:45 Blood - Venous Blood Culture - Preliminary Prelim: GNR Gram Stain only 09/21/24 19:45 Blood - Venous Blood Culture - Preliminary Prelim: GNR Gram Stain only Assessment and Plan (1) Insulin dependent type 2 diabetes mellitus: Status: Acute (2) Sepsis: Status: Acute (3) Pyelonephritis of right kidney: Status: Acute Plan She has large leukemoid response which can be significant with pyelonephritis and air. She has no identification yet of gram negative organism in blood or urine. Would switch to Merepenem pending ID of organism and/or clinical improvement. Await cultures. Urology to weigh in on right kidney ?necrosis with leukocytosis as well as if hydronephrosis could be more severe than seen on CT and possible need stent. Best glucose control Duration and type of antibiotics to be determined
[2024-09-23] MEDS: ondansetron HCL 4 MG/2 ML VIAL IVPUSH (00:59)
[2024-09-23] MEDS: Meropenem 1 GM VIAL IVPUSH ×4 (01:01→21:34)
[2024-09-23] MEDS: Morphine Sulfate 4 MG/ML CARTRIDGE IVPUSH ×5 (01:17→18:20)
[2024-09-23] MEDS: Lactated Ringers 1,000 ML 100 ML IVCONT (05:35)
[2024-09-23 07:08] LABS: Anion Gap 13 (12-20); Blood Urea Nitrogen 24 mg/dL (9-16); Calcium 8.6 mg/dL (8.4-10.2); Carbon Dioxide 20 mmol/L (22-29); Chloride 102 mmol/L (96-108); Creatinine Clr Calc Pharmacy 42.5; Estimated Glomerular Filt Rate 43; Glucose Random 290 mg/dL (60-115); Potassium 4.1 mmol/L (3.3-5.1); Sodium 131 mmol/L (135-145)
[2024-09-23 07:39] LABS: Glucose, Whole Blood 306 mg/dL (60-115)
[2024-09-23] MEDS: Insulin Lispro 100 UNIT/ML 3 ML VIAL SUBCUT ×5 (07:41→16:24)
--- NOTE | 2024-09-23 09:01 | HO.PM.IMPN ---
Subjective Subjective Date of Service: 09/23/24 Review of Systems Follow up Pyelo nausea and abd pain no appetite Physical Exam Vital Signs: Vital Signs: Last Vital Signs Temp 98.5 F 09/23/24 08:00 Pulse 110 H 09/23/24 08:00 Resp 18 09/23/24 08:00 BP 108/58 L 09/23/24 08:00 Pulse Ox 92 09/23/24 08:00 O2 Del Method Room Air 09/23/24 08:00 BMI result Body Mass Index 28.3 Appearing in no acute distress lung sounds are clear to auscultation heart regular rate rhythm, clear S1, S2 positive bowel sounds, abdomen is soft, tender diffusely neuro patient is alert x3, no focal deficits Objective Data Active Medications Acetaminophen (Acetaminophen 325 Mg Tablet) 650 mg PO Q6H PRN PRN Reason: Pain, Mild (Pain Scale 1-3), fever or headache Last Admin: 09/22/24 15:28 Dose: 650 mg Documented By: DOMINIK Calcium Carbonate (Calcium Carbonate 750 Mg Tab.Chew) 750 mg PO Q4H PRN PRN Reason: Heartburn Enoxaparin Sodium (Enoxaparin Sodium 40 Mg/0.4 Ml Syringe) 40 mg SUBCUT Q24H [facility] Last Admin: 09/22/24 21:05 Dose: 40 mg Documented By: GERARDO Glucose (Glucose Gel 15 Gm Gel..Gram.) 15 gm PO Q15M PRN; Protocol PRN Reason: per Hypoglycemia Standing Ord. Dextrose (D10) 250 mls @ 750 mls/hr IV Q15M PRN; Protocol PRN Reason: per Hypoglycemia Standing Ord. Lactated Ringer's (Lr) 1,000 mls @ 50 mls/hr IVCONT .Q20H [facility] Last Infusion: 09/23/24 08:02 Dose: 50 mls/hr Documented By: DOMINIK Insulin Glargine (Insulin Glargine,Hum.Rec.Anlog 100 Unit/Ml 10 Ml Vial) 32 unit SUBCUT BEDTIME [facility] Last Admin: 09/22/24 21:06 Dose: 32 unit Documented By: GERARDO Insulin Human Lispro (Insulin Lispro 100 Unit/Ml 3 Ml Vial) 0 unit SUBCUT QIDACHS [facility]; Protocol Last Admin: 09/23/24 07:41 Dose: 8 unit Documented By: NOEL Insulin Human Lispro (Insulin Lispro 100 Unit/Ml 3 Ml Vial) 5 unit SUBCUT QIDACHS [facility] Magnesium Hydroxide (Milk Of Magnesia 30 Ml Oral.Susp) 30 ml PO DAILY PRN PRN Reason: Constipation Melatonin (Melatonin 3 Mg Tablet) 6 mg PO BEDTIME PRN PRN Reason: Insomnia Meropenem (Meropenem 1 Gm Vial) 1 gm IVPUSH Q8H [facility] Last Admin: 09/23/24 05:50 Dose: 1 gm Documented By: GERARDO Morphine Sulfate (Morphine Sulfate 4 Mg/Ml Cartridge) 4 mg IVPUSH Q4H PRN; Protocol PRN Reason: Pain, Severe (Pain Scale 7-10) Last Admin: 09/23/24 05:46 Dose: 4 mg Documented By: GERARDO Ondansetron HCl (Ondansetron Hcl 4 Mg/2 Ml Vial) 4 mg IVPUSH Q4H PRN PRN Reason: Nausea and Vomiting Last Admin: 09/23/24 00:59 Dose: 4 mg Documented By: GERARDO Sodium Chloride (0.9 % Sodium Chloride Flush 3 Ml Syringe) 3 ml IVFLUSH QSHIFT [facility] Last Admin: 09/23/24 07:43 Dose: Not Given Documented By: NOEL Non-Admin Reason: IV Running Labs 09/22/24 06:26 09/23/24 06:00 Labs: Laboratory Results - last 24 hr 09/22/24 09/22/24 09/22/24 06:26 11:10 16:14 Hold Purple Top Anion Gap 16 Estim Creat Clear Calc 42.5 Estimated GFR 43 POC Glucose 302 H 288 H Random Glucose 373 H* Calcium 8.3 L D 09/22/24 09/23/24 09/23/24 20:17 06:00 07:30 Hold Purple Top SEE NOTE Anion Gap 13 Estim Creat Clear Calc 42.5 Estimated GFR 43 POC Glucose 220 H 306 H Random Glucose 290 H Calcium 8.6 Microbiology Microbiology Results: Microbiology 09/21/24 22:10 Urine Culture - Preliminary Urine clean catch - Clean Catch Midstream Culture in progress. 09/21/24 19:45 Blood Culture - Preliminary Blood - Venous Prelim: GNR Gram Stain only 09/21/24 19:45 Blood Culture - Preliminary Blood - Venous Prelim: GNR Gram Stain only Assessment and Plan (1) Pyelonephritis of right kidney: Status: Acute Plan 53-year-old female with pertinent history of insulin-dependent diabetes mellitus, mixed hyperlipidemia who presents to the emergency department for evaluation of abdominal pain. GNR bacteremia secondary to pyelo ID changed Rocephin 2gm to meropenem follow final cx Severe sepsis due to right-sided pyelonephritis. sepsis resolved tachycardia, leukocytosis, lactic acidosis continue IV crystalloids. continue IV meropenem antiemetics prn Urine cx pending Hydronephrosis urology consultation Elevated creatinine. resolved Unknown baseline. JACINTA versus CKD. Monitor creatinine urine output with crystalloid resuscitation. Avoid nephrotoxins mild hyponatremia likely from IV fluids decreased to 50/hr po intake is improving, can dc fluids when she is eating a proper amount nephro consult Insulin-dependent diabetes mellitus with hyperglycemia ss, lantus mealtime insulin added Obesity. BMI 28.3 Counseled regarding diet and exercise DVT prophylaxis: Lovenox Attending Dr. Ojeda Full code Quality Stroke Does the patient have a stroke diagnosis?: No VTE Prior VTE?: No VTE Risk Level:: Medical - moderate - high VTE Device Contraindication: Treatment Not Indicated VTE Drug Contraindication: N/A - Med Ordered
[2024-09-23 11:25] LABS: Glucose, Whole Blood 228 mg/dL (60-115)
[2024-09-23 16:10] LABS: Glucose, Whole Blood 198 mg/dL (60-115)
[2024-09-23] MEDS: Acetaminophen 325 MG TABLET 650 MG PO (16:23)
--- NOTE | 2024-09-23 17:15 | PM.UROCN ---
History of Present Illness Consult details Consult date: 09/23/24 Narrative: CC: Right pyelonephritis 53-year-old female Presents to emergency room with reported 1 day history of right abdominal flank pain. Has associated fevers with chills and nonbloody emesis Denied dysuria did have increased urinary frequency Does report prior UTIs many years ago Found to have elevated WBC 31.9, lactate 2.7, creatinine 1.5, disorder glucose metabolism at 460 Known type 2 diabetic, insulin-dependent. Only listed home medications are insulin with metformin. Imaging - Somewhat ill-defined and wedge-shaped areas of hypoattenuation within the upper and lower poles of the right kidney with mild hydroureteronephrosis, perinephric and periureteral stranding Microbiology - Gram-negative rods pending Has been seen by infectious disease. Question regarding sufficient drainage from right kidney. CT scan indicates relatively well perfused. Patchy area on upper lateral portion of right kidney consistent with pyelonephritis. No evidence of obstruction from papillary necrosis. Papillae necrosis would be a concern given the background of diabetes and level of white count. While there are small pockets of free air appearance is not consistent with emphysematous pyelonephritis. If this does not improve over next few days we will consider stenting Review of Systems Constitutional: Constitutional: Reports as per HPI and Reports no additional constitutional complaints Cardiovascular: Cardiovascular: Reports as per HPI and Reports no additional cardiovascular complaints Respiratory: Respiratory: Reports as per HPI and Reports no additional respiratory complaints Gastrointestinal: Gastrointestinal: Reports as per HPI and Reports no additional gastrointestinal complaints Genitourinary: Genitourinary: Reports as per HPI Musculoskeletal: Musculoskeletal: Reports no additional musculoskeletal complaints and Reports as per HPI Neurologic: Reports system reviewed and no additional complaints, except as documented and Reports as per HPI [facility] Past Medical History Medical History Mixed hyperlipidemia Insulin dependent type 2 diabetes mellitus Family History Family history: reviewed and not pertinent Social History Social History Household Members: Spouse Housing: House Do you presently have visiting nurse or other home services: No Patient Tobacco Use Status: Current everyday Tobacco user Tobacco use type: Cigarette Cigarettes Per Day: 6 Years Smoked: 40 Smoked in Last 30 Days: Yes Patient Interested in Nicotine Replacement: Yes Use of substances other than those prescribed or required for medical reasons: No Currently Displaying Signs/Symptoms of Drug Intoxication Withdrawal: No Have you been hit, kicked, punched, or otherwise hurt by someone within the past year? If so, by whom?: No Do you feel safe in your current relationship?: Yes Is there a partner from a previous relationship who is making you feel unsafe now?: No Are you made to feel afraid or neglected: No Advance Directives: No Advance Directives Information Provided: No Do you have a plan to hurt others: No Plan Recently lost weight without trying: Unsure Nutrition Risks: No Nutritional Risk Patient : No service: No Meds Allergies Allergy/AdvReac Type Severity Reaction Status Date / Time acetaminophen [From Percocet] Allergy Unknown Verified 09/21/24 17:40 oxycodone [From Percocet] Allergy Unknown Verified 09/21/24 17:40 tramadol Allergy Unknown Verified 09/21/24 17:40 Active Medications: Current Medications Acetaminophen (Acetaminophen 325 Mg Tablet) 650 mg PO Q6H PRN PRN Reason: Pain, Mild (Pain Scale 1-3), fever or headache Last Admin: 09/23/24 16:23 Dose: 650 mg Calcium Carbonate (Calcium Carbonate 750 Mg Tab.Chew) 750 mg PO Q4H PRN PRN Reason: Heartburn Enoxaparin Sodium (Enoxaparin Sodium 40 Mg/0.4 Ml Syringe) 40 mg SUBCUT Q24H [facility] Last Admin: 09/22/24 21:05 Dose: 40 mg Glucose (Glucose Gel 15 Gm Gel..Gram.) 15 gm PO Q15M PRN; Protocol PRN Reason: per Hypoglycemia Standing Ord. Dextrose (D10) 250 mls @ 750 mls/hr IV Q15M PRN; Protocol PRN Reason: per Hypoglycemia Standing Ord. Lactated Ringer's (Lr) 1,000 mls @ 50 mls/hr IVCONT .Q20H [facility] Last Infusion: 09/23/24 08:02 Dose: 50 mls/hr Insulin Glargine (Insulin Glargine,Hum.Rec.Anlog 100 Unit/Ml 10 Ml Vial) 32 unit SUBCUT BEDTIME [facility] Last Admin: 09/22/24 21:06 Dose: 32 unit Insulin Human Lispro (Insulin Lispro 100 Unit/Ml 3 Ml Vial) 0 unit SUBCUT QIDACHS [facility]; Protocol Last Admin: 09/23/24 16:23 Dose: 2 unit Insulin Human Lispro (Insulin Lispro 100 Unit/Ml 3 Ml Vial) 5 unit SUBCUT QIDACHS [facility] Last Admin: 09/23/24 16:24 Dose: 5 unit Magnesium Hydroxide (Milk Of Magnesia 30 Ml Oral.Susp) 30 ml PO DAILY PRN PRN Reason: Constipation Melatonin (Melatonin 3 Mg Tablet) 6 mg PO BEDTIME PRN PRN Reason: Insomnia Meropenem (Meropenem 1 Gm Vial) 1 gm IVPUSH Q8H [facility] Last Admin: 09/23/24 14:10 Dose: 1 gm Morphine Sulfate (Morphine Sulfate 4 Mg/Ml Cartridge) 4 mg IVPUSH Q4H PRN; Protocol PRN Reason: Pain, Severe (Pain Scale 7-10) Last Admin: 09/23/24 14:16 Dose: 4 mg Ondansetron HCl (Ondansetron Hcl 4 Mg/2 Ml Vial) 4 mg IVPUSH Q4H PRN PRN Reason: Nausea and Vomiting Last Admin: 09/23/24 00:59 Dose: 4 mg Sodium Chloride (0.9 % Sodium Chloride Flush 3 Ml Syringe) [facility] Last Admin: 09/23/24 14:17 Dose: Not Given Home Medications ?Medication ?Instructions ?Recorded ?Confirmed ?Last Taken ?Type insulin glargine 100 unit/mL (3 40 unit subcut BEDTIME 09/22/24 09/22/24 09/20/24 History mL) subcutaneous pen (Lantus Solostar U-100 Insulin) metformin 850 mg tablet 850 mg PO BID 09/22/24 09/22/24 09/20/24 History naproxen 500 mg tablet 500 mg PO BID PRN Pain 09/22/24 09/22/24 Unknown History Physical Exam Vital Signs: Vital Signs: Last Vital Signs Temp 99.7 F 09/23/24 15:23 Pulse 119 H 09/23/24 15:23 Resp 18 09/23/24 15:23 BP 121/65 09/23/24 15:23 Pulse Ox 94 09/23/24 15:23 O2 Del Method Nasal Cannula 09/23/24 15:23 O2 Flow Rate 1 09/23/24 15:23 BMI result Body Mass Index 28.3 Const: General: cooperative, healthy appearing, comfortable and no acute distress Orientation/consciousness: patient oriented x3 HEENT: Face and sinus: Yes normal facial exam Mouth: moist mucous membranes Neck: Neck: Yes normal visual inspection, Yes full ROM and Yes trachea midline Chest: Chest palpation & inspection: normal inspection of the chest Resp: Effort & Inspection: normal respiratory effort, able to speak in complete sentences and no respiratory distress GI: Inspection: Yes normal to inspection Back/Spine/Pelvis: Cervical Spine: normal cervical lordosis Thoracic/Lumbar Spine: thoracic and lumbar spine normal to inspection Skin: General skin exam: no rashes or lesions noted Neuro: General: patient oriented x3, tone normal and moves all extremities Extrem: General: Yes normal to inspection and Yes capillary refill normal Results Labs 09/22/24 06:26 09/23/24 06:00 Labs: Abnormal lab results 09/22/24 09/23/24 09/23/24 Range/Units 20:17 06:00 07:30 Sodium 131 L (135-145) mmol/L Carbon Dioxide 20 L (22-29) mmol/L BUN 24 H (9-16) mg/dL POC Glucose 220 H 306 H (60-115) mg/dL Random Glucose 290 H (60-115) mg/dL 09/23/24 09/23/24 Range/Units 11:12 16:02 Sodium (135-145) mmol/L Carbon Dioxide (22-29) mmol/L BUN (9-16) mg/dL POC Glucose 228 H 198 H (60-115) mg/dL Random Glucose (60-115) mg/dL BMP 09/23/24 06:00 Sodium 131 L Potassium 4.1 Chloride 102 Carbon Dioxide 20 L BUN 24 H Creatinine 1.31 Calcium 8.6 Urine 09/21/24 Range/Units 22:10 Urine Color Yellow Urine Appearance Cloudy Urine pH 5.5 (5.0-9.0) Ur Specific [place] >= 1.030 H (1.005-1.025) Urine Protein Trace (Neg-Trace) mg/dL Urine Glucose (UA) >=1000 H (Negative) mg/dL All other labs normal. Assessment and Plan (1) Pyelonephritis of right kidney: Status: Acute (2) Sepsis: Status: Acute Plan Conservative therapy Would consider stenting if no improvement over next 48 hours Await culture results for targeted treatment Procedures Date of Service Date of Service: 09/23/24
[2024-09-23 20:13] LABS: Glucose, Whole Blood 112 mg/dL (60-115)
[2024-09-23] MEDS: Insulin Glargine,Hum.rec.anlog 100 UNIT/ML 10 ML VIAL 32 UNIT SUBCUT (20:38)
[2024-09-23] MEDS: Lactated Ringers 1,000 ML 50 ML IVCONT (21:33)
[2024-09-23] MEDS: Enoxaparin Sodium 40 MG/0.4 ML SYRINGE SUBCUT (21:34)
[2024-09-23] MEDS: Albuterol/Iprat 2.5/0.5MG 3 ML AMPUL.NEB INHALE (22:54)
[2024-09-24] VITALS (7 sets, daily range): BP systolic 107–129; BP diastolic 58–78; PULSE 64–117; RESP 17–20; TEMP 36.1–37.9; O2SAT 92–95
[2024-09-24] MEDS: Morphine Sulfate 4 MG/ML CARTRIDGE IVPUSH ×5 (01:21→21:42)
[2024-09-24] MEDS: Meropenem 1 GM VIAL IVPUSH ×2 (05:54→13:34)
[2024-09-24 06:40] LABS: Hemoglobin 10.9 g/dl (12.0-16.0); Mean Corpuscular HGB Conc 34.1 g/dl (31.0-35.0); Mean Corpuscular Volume 90.9 fL (80.0-98.0); Mean Platelet Volume 12.9 fL (9.4-12.3); Platelet Count 106 X10*3/uL (160-400); Red Blood Count 3.52 X10*6/uL (4.20-5.50); Red Cell Distribution Width 12.2 % (11.0-16.0); White Blood Count 26.8 X10*3/uL (4.8-10.8)
[2024-09-24 06:53] LABS: Anion Gap 13 (12-20); Blood Urea Nitrogen 21 mg/dL (9-16); Calcium 8.6 mg/dL (8.4-10.2); Carbon Dioxide 20 mmol/L (22-29); Chloride 101 mmol/L (96-108); Creatinine Clr Calc Pharmacy 58.6; Estimated Glomerular Filt Rate > 60; Glucose Random 178 mg/dL (60-115); Potassium 3.4 mmol/L (3.3-5.1); Sodium 131 mmol/L (135-145)
[2024-09-24 07:35] LABS: Glucose, Whole Blood 170 mg/dL (60-115)
[2024-09-24] MEDS: Insulin Lispro 100 UNIT/ML 3 ML VIAL SUBCUT ×5 (07:44→21:47)
[2024-09-24] MEDS: 0.9 % Sodium Chloride Flush 3 ML SYRINGE IVFLUSH (07:45)
--- NOTE | 2024-09-24 09:57 | P.PNIM_ITS ---
Subjective Subjective Date of Service: 09/24/24 Interval History: seen and examined this morning follow up for pyelonephritis feeling somewhat better, still with right side pain Review of Systems Review of Systems: Yes all other systems are reviewed and are negative Constitutional Constitutional: Denies chills and Denies fever(s) Cardiovascular Cardiovascular: Denies chest pain, Denies palpitations and Denies dyspnea Respiratory Respiratory: Denies cough and Denies dyspnea Endocrine Endocrine: Denies palpitations Physical Exam 2 Vital Signs: Vital Signs: Last Vital Signs Temp 98.7 F 09/24/24 07:56 Pulse 109 H 09/24/24 07:56 Resp 18 09/24/24 07:56 BP 112/58 L 09/24/24 07:56 Pulse Ox 93 09/24/24 07:56 O2 Del Method Nasal Cannula 09/24/24 07:56 O2 Flow Rate 2 09/24/24 07:56 BMI result Body Mass Index 28.3 Const: General: alert and awake Nutritional Appearance: overweight O rientation/consciousness: patient oriented x3 Resp: Effort & Inspection: normal respiratory effort, able to speak in complete sentences, no respiratory distress and no use of accessory muscles Cardio: Rate: tachycardic GI: Inspection: No distended Palpation (GI): Soft to palpation : General: Yes CVA tenderness Back/Spine/Pelvis: Back: CVA tenderness Neuro: General: patient oriented x3, moves all extremities and CN's II-XI intact bilaterally Extrem: General: Yes no pedal edema Objective Data Active Medications Acetaminophen (Acetaminophen 325 Mg Tablet) 650 mg PO Q6H PRN PRN Reason: Pain, Mild (Pain Scale 1-3), fever or headache Last Admin: 09/23/24 16:23 Dose: 650 mg Documented By: NOEL Albuterol/Ipratropium (Albuterol/Iprat 2.5/0.5mg 3 Ml Ampul.Neb) 3 ml INHALE Q4H PRN PRN Reason: Wheezing Last Admin: 09/23/24 22:54 Dose: 3 ml Documented By: RENETTA Calcium Carbonate (Calcium Carbonate 750 Mg Tab.Chew) 750 mg PO Q4H PRN PRN Reason: Heartburn Enoxaparin Sodium (Enoxaparin Sodium 40 Mg/0.4 Ml Syringe) 40 mg SUBCUT Q24H [facility] Last Admin: 09/23/24 21:34 Dose: 40 mg Documented By: BUCKY Glucose (Glucose Gel 15 Gm Gel..Gram.) 15 gm PO Q15M PRN; Protocol PRN Reason: per Hypoglycemia Standing Ord. Dextrose (D10) 250 mls @ 750 mls/hr IV Q15M PRN; Protocol PRN Reason: per Hypoglycemia Standing Ord. Lactated Ringer's (Lr) 1,000 mls @ 50 mls/hr IVCONT .Q20H [facility] Last Admin: 09/23/24 21:33 Dose: 50 mls/hr Documented By: BUCKY Insulin Glargine (Insulin Glargine,Hum.Rec.Anlog 100 Unit/Ml 10 Ml Vial) 32 unit SUBCUT BEDTIME [facility] Last Admin: 09/23/24 20:38 Dose: 32 unit Documented By: BUCKY Insulin Human Lispro (Insulin Lispro 100 Unit/Ml 3 Ml Vial) 0 unit SUBCUT QIDACHS [facility]; Protocol Last Admin: 09/24/24 07:44 Dose: 2 unit Documented By: MADDIE Insulin Human Lispro (Insulin Lispro 100 Unit/Ml 3 Ml Vial) 5 unit SUBCUT QIDAS [facility] Last Admin: 09/24/24 07:45 Dose: 5 unit Documented By: MADDIE Magnesium Hydroxide (Milk Of Magnesia 30 Ml Oral.Susp) 30 ml PO DAILY PRN PRN Reason: Constipation Melatonin (Melatonin 3 Mg Tablet) 6 mg PO BEDTIME PRN PRN Reason: Insomnia Meropenem (Meropenem 1 Gm Vial) 1 gm IVPUSH Q8H [facility] Last Admin: 09/24/24 05:54 Dose: 1 gm Documented By: BUCKY Morphine Sulfate (Morphine Sulfate 4 Mg/Ml Cartridge) 4 mg IVPUSH Q4H PRN; Protocol PRN Reason: Pain, Severe (Pain Scale 7-10) Last Admin: 09/24/24 07:45 Dose: 4 mg Documented By: MADDIE Ondansetron HCl (Ondansetron Hcl 4 Mg/2 Ml Vial) 4 mg IVPUSH Q4H PRN PRN Reason: Nausea and Vomiting Last Admin: 09/23/24 00:59 Dose: 4 mg Documented By: GERARDO Sodium Chloride (0.9 % Sodium Chloride Flush 3 Ml Syringe) 3 ml IVFLUSH QSHIFT [facility] Last Admin: 09/24/24 07:45 Dose: 3 ml Documented By: MADDIE Labs 09/24/24 05:42 09/24/24 05:42 Labs: Laboratory Results - last 24 hr 09/23/24 09/23/24 09/23/24 11:12 16:02 20:06 MCV MCH MCHC RDW Plt Count MPV Absolute Nucleated RBC Nucleated RBC % (auto) Anion Gap Estim Creat Clear Calc Estimated GFR POC Glucose 228 H 198 H 112 Random Glucose Calcium 09/24/24 09/24/24 05:42 07:32 MCV 90.9 MCH 31.0 MCHC 34.1 RDW 12.2 Plt Count 106 L MPV 12.9 H Absolute Nucleated RBC 0.000 Nucleated RBC % (auto) 0.0 Anion Gap 13 Estim Creat Clear Calc 58.6 Estimated GFR > 60 POC Glucose 170 H Random Glucose 178 H Calcium 8.6 Microbiology Microbiology Results: Microbiology 09/21/24 22:10 Urine Culture - Final Urine clean catch - Clean Catch Midstream Escherichia coli 09/21/24 19:45 Blood Culture - Preliminary Blood - Venous Gram negative vivien 09/21/24 19:45 Blood Culture - Preliminary Blood - Venous Gram negative vivien Assessment and Plan (1) Pyelonephritis of right kidney: Status: Acute (2) Sepsis: Status: Acute Plan 53-year-old female with pertinent history of insulin-dependent diabetes mellitus, mixed hyperlipidemia who presents to the emergency department for evaluation of abdominal pain. severe sepsis due to GNR bacteremia secondary to pyelo ID changed Rocephin 2gm to meropenem urine growing e.coli, blood cultures pending. will continue current abx until final culture sensitivities return white count beginning to trend down, remains tachy Hydronephrosis urology consultation - continue conservative management for now, if no improvement in 48 hours will continue stenting anemia no evidence of acute blood loss follow CBC thrombocytopenia likely due to sepsis trend CBC JACINTA. resolved. mild hyponatremia in part due to hyperglycemia follow BMP Insulin-dependent diabetes mellitus with hyperglycemia hold metformin ss, lantus mealtime insulin added Obesity. BMI 28.3 Counseled regarding diet and exercise DVT prophylaxis: Lovenox Attending Dr. Ojeda Full code Quality Stroke Does the patient have a stroke diagnosis?: No VTE Prior VTE?: No VTE Risk Level:: Medical - moderate - high VTE Device Contraindication: Treatment Not Indicated VTE Drug Contraindication: N/A - Med Ordered
[2024-09-24] MEDS: Acetaminophen 325 MG TABLET 650 MG PO (10:17)
[2024-09-24 11:29] LABS: Glucose, Whole Blood 168 mg/dL (60-115)
--- NOTE | 2024-09-24 14:12 | P.CDIM_ITS ---
PROVIDER RESPONSE TEXT: To clarify, the appropriate diagnosis supported by the clinical indicators: Acute QUERY TEXT: PHYSICIAN'S DOCUMENTATION REQUEST Date of Query: 09/24/2024 01:32 PM EST Patient Name: Jill Cho Admit Date: 09/22/2024 Dear Nori ARCINIEGA, A review of the medical record indicates additional documentation may be needed. Please review below and update the documentation accordingly. Clinical Indicators: follow up for pyelonephritis urine growing E.coli, blood cultures pending ID changed Rocephin 2gm to Meropenem Clarify which of the following accurately represents the acuity of the (insert diagnosis). Possible options might include: Acute Acute on chronic Compensated Chronic stable condition Remission Other (explain) Clinically unable to determine (explain) Thank you, Melanie Soriano RN Use of terms such as suspected, likely, concern for, or probable (associated with a specific diagnosi s that is being evaluated, monitored, or treated as if it exists) are acceptable and can be coded in the inpatient se tting, when documented at the time of discharge. Please use your independent medical judgment in providing your response. THIS QUERY IS PART OF THE PERMANENT MEDICAL RECORD
[2024-09-24] MEDS: cefTRIAXone sodium 2 GM VIAL IVPUSH (14:25)
[2024-09-24] MEDS: Albuterol/Iprat 2.5/0.5MG 3 ML AMPUL.NEB INHALE (15:13)
--- NOTE | 2024-09-24 15:16 | MHC.CM.PN ---
per rounds dc pending culture results
[2024-09-24 16:36] LABS: Glucose, Whole Blood 134 mg/dL (60-115)
[2024-09-24] MEDS: Lactated Ringers 1,000 ML 100 ML IVCONT (16:55)
[2024-09-24 20:16] LABS: Glucose, Whole Blood 223 mg/dL (60-115)
[2024-09-24] MEDS: Enoxaparin Sodium 40 MG/0.4 ML SYRINGE SUBCUT (21:45)
[2024-09-24] MEDS: Insulin Glargine,Hum.rec.anlog 100 UNIT/ML 10 ML VIAL 32 UNIT SUBCUT (21:46)
[2024-09-25 02:54] VITALS: BP 120/57; PULSE 106; RESP 20; TEMP 36.9; O2SAT 95
[2024-09-25] MEDS: Lactated Ringers 1,000 ML 100 ML IVCONT (05:34)
[2024-09-25] MEDS: Morphine Sulfate 4 MG/ML CARTRIDGE IVPUSH ×3 (06:24→21:59)
[2024-09-25 06:38] LABS: Basophils Absolute Auto 0.1 X10*3/uL (0.0-0.2); Basophils Percent Auto 0.4 % (0-2); Eosinophils Absolute Auto 0.2 X10*3/uL (0.0-0.4); Hematocrit 31.5 % (37.0-47.0); Hemoglobin 11.2 g/dl (12.0-16.0); Imm Gran Abs Auto 0.36 X10*3/uL (0.00-0.03); Imm Gran Pct Auto 1.5 % (0.0-0.4); Lymphocytes Absolute Auto 1.6 X10*3/uL (1.2-4.9); Lymphocytes Percent Auto 6.6 % (20-40); MANUAL DIFF FLAG SCAN; Mean Corpuscular HGB Conc 35.6 g/dl (31.0-35.0); Mean Corpuscular Hemoglobin 31.9 pg (27.0-33.0); Mean Corpuscular Volume 89.7 fL (80.0-98.0); Mean Platelet Volume 12.3 fL (9.4-12.3); Monocytes Absolute Auto 1.9 X10*3/uL (0.1-1.2); Neutrophils Absolute Auto 19.5 x10*3/uL (2.0-8.3); Neutrophils Percent Auto 82.5 % (45-73); Platelet Count 129 X10*3/uL (160-400); Red Blood Count 3.51 X10*6/uL (4.20-5.50); Red Cell Distribution Width 12.7 % (11.0-16.0); SCAN SMEAR FLAG 1; White Blood Count 23.6 X10*3/uL (4.8-10.8)
[2024-09-25 06:52] LABS: Anion Gap 13 (12-20); Blood Urea Nitrogen 14 mg/dL (9-16); Calcium 8.7 mg/dL (8.4-10.2); Carbon Dioxide 21 mmol/L (22-29); Chloride 100 mmol/L (96-108); Creatinine Clr Calc Pharmacy 69.6; Estimated Glomerular Filt Rate > 60; Glucose Random 170 mg/dL (60-115); Potassium 3.2 mmol/L (3.3-5.1); Sodium 131 mmol/L (135-145)
[2024-09-25 07:27] LABS: Glucose, Whole Blood 147 mg/dL (60-115)
[2024-09-25 07:32] LABS: SLIDE REVIEW VERIFIED
[2024-09-25 07:51] VITALS: BP 130/65; PULSE 105; RESP 17; TEMP 37.6; O2SAT 92
[2024-09-25 07:59] LABS: Magnesium 1.9 mg/dL (1.6-2.6)
[2024-09-25] MEDS: Potassium Chloride Packet 20 MEQ PACKET 40 MEQ PO ×2 (07:59→19:47)
[2024-09-25 09:00] VITALS: O2SAT 79
[2024-09-25 10:47] VITALS: O2SAT 93
--- NOTE | 2024-09-25 11:10 | PC.NURSE ---
Patient walked to bathroom on RA with O2 sat at 79% while walking and breathing shallow and wheezing noted. Nurse applied O2 NC at 4L when returned to bed with O2 sat of 93%. Notified DR and chest x-ray ordered.
[2024-09-25 11:16] LABS: Glucose, Whole Blood 213 mg/dL (60-115)
[2024-09-25] MEDS: Insulin Lispro 100 UNIT/ML 3 ML VIAL SUBCUT ×3 (11:25→21:47)
--- NOTE | 2024-09-25 12:31 | PM.UROPN ---
Subjective Subjective Date of Service: 09/25/24 Interval history: Culture confirmed as E coli Background diabetic Will require 2 weeks suggest Levaquin Follow-up with urology in 3 months with renal ultrasound Physical Exam Vital Signs: Vital Signs: Last Vital Signs Temp 99.6 F 09/25/24 07:51 Pulse 105 H 09/25/24 07:51 Resp 17 09/25/24 07:51 BP 130/65 09/25/24 07:51 Pulse Ox 93 09/25/24 10:47 O2 Del Method Nasal Cannula 09/25/24 10:47 O2 Flow Rate 4 09/25/24 10:47 BMI result Body Mass Index 28.3 Const: General: cooperative, healthy appearing, comfortable and no acute distress Orientation/consciousness: patient oriented x3 HEENT: Face and sinus: Yes normal facial exam Mouth: moist mucous membranes Neck: Neck: Yes normal visual inspection, Yes full ROM and Yes trachea midline Chest: Chest palpation & inspection: normal inspection of the chest Resp: Effort & Inspection: normal respiratory effort, able to speak in complete sentences and no respiratory distress GI: Inspection: Yes normal to inspection Back/Spine/Pelvis: Cervical Spine: normal cervical lordosis Thoracic/Lumbar Spine: thoracic and lumbar spine normal to inspection Skin: General skin exam: no rashes or lesions noted Neuro: General: patient oriented x3, tone normal and moves all extremities Extrem: General: Yes normal to inspection and Yes capillary refill normal Urology Results Labs 09/25/24 06:18 09/25/24 06:18 Labs: Laboratory Results - last 24 hr 09/24/24 09/24/24 09/25/24 16:32 20:10 06:18 WBC 23.6 H RBC 3.51 L Hgb 11.2 L Hct 31.5 L MCV 89.7 MCH 31.9 MCHC 35.6 H RDW 12.7 Plt Count 129 L MPV 12.3 Immature Gran % (Auto) 1.5 H Neut % (Auto) 82.5 H Lymph % (Auto) 6.6 L [place] % (Auto) 8.0 Eos % (Auto) 1.0 Baso % (Auto) 0.4 Lymph # (Auto) 1.6 [place] # (Auto) 1.9 H Eos # (Auto) 0.2 Baso # (Auto) 0.1 Abs Immat Gran (auto) 0.36 H Absolute Neuts (auto) 19.5 H Absolute Nucleated RBC 0.000 Nucleated RBC % (auto) 0.0 Smear Tech's Comments VERIFIED Sodium 131 L Potassium 3.2 L Chloride 100 Carbon Dioxide 21 L Anion Gap 13 BUN 14 Creatinine 0.80 Estim Creat Clear Calc 69.6 Estimated GFR > 60 POC Glucose 134 H 223 H Random Glucose 170 H Calcium 8.7 Magnesium 1.9 09/25/24 09/25/24 07:14 11:08 WBC RBC Hgb Hct MCV MCH MCHC RDW Plt Count MPV Immature Gran % (Auto) Neut % (Auto) Lymph % (Auto) [place] % (Auto) Eos % (Auto) Baso % (Auto) Lymph # (Auto) [place] # (Auto) Eos # (Auto) Baso # (Auto) Abs Immat Gran (auto) Absolute Neuts (auto) Absolute Nucleated RBC Nucleated RBC % (auto) Smear Tech's Comments Sodium Potassium Chloride Carbon Dioxide Anion Gap BUN Creatinine Estim Creat Clear Calc Estimated GFR POC Glucose 147 H 213 H Random Glucose Calcium Magnesium Progress Note: A&P Assessment and plan (1) Pyelonephritis of right kidney: Status: Acute Plan 2 weeks antibiotics Time Spent With Patient Time: Total time managing care of this patient today ____ minutes. Progress Note: Quality Stroke Does the patient have a stroke diagnosis?: No
--- NOTE | 2024-09-25 14:12 | P.PNIM_ITS ---
Subjective Subjective Date of Service: 09/25/24 Interval History: seen and examined this morning follow up for sepsis/pyelo history obtained with assistance of diplomatic interpreter/translator flank pain improving, sob with ambulation no cough Review of Systems Review of Systems: Yes all other systems are reviewed and are negative Constitutional Constitutional: Denies chills and Reports fever(s) Physical Exam 2 Vital Signs: Vital Signs: Last Vital Signs Temp 99.6 F 09/25/24 07:51 Pulse 105 H 09/25/24 07:51 Resp 17 09/25/24 07:51 BP 130/65 09/25/24 07:51 Pulse Ox 93 09/25/24 10:47 O2 Del Method Nasal Cannula 09/25/24 10:47 O2 Flow Rate 4 09/25/24 10:47 BMI result Body Mass Index 28.3 Const: General: alert and awake Nutritional Appearance: overweight O rientation/consciousness: patient oriented x3 Resp: Other: diminished breath sounds b/l no wheeze Effort & Inspection: normal respiratory effort, able to speak in complete sentences, no respiratory distress and no use of accessory muscles Cardio: Rate: tachycardic GI: Inspection: No distended Palpation (GI): Soft to palpation : General: Yes CVA tenderness Back/Spine/Pelvis: Back: CVA tenderness Neuro: General: patient oriented x3, moves all extremities and CN's II-XI intact bilaterally Extrem: General: Yes no pedal edema Objective Data Active Medications Acetaminophen (Acetaminophen 325 Mg Tablet) 650 mg PO Q6H PRN PRN Reason: Pain, Mild (Pain Scale 1-3), fever or headache Last Admin: 09/24/24 10:17 Dose: 650 mg Documented By: MADDIE Albuterol/Ipratropium (Albuterol/Iprat 2.5/0.5mg 3 Ml Ampul.Neb) 3 ml INHALE Q4H PRN PRN Reason: Wheezing Last Admin: 09/24/24 15:13 Dose: 3 ml Documented By: DONIS Calcium Carbonate (Calcium Carbonate 750 Mg Tab.Chew) 750 mg PO Q4H PRN PRN Reason: Heartburn Ceftriaxone Sodium (Ceftriaxone Sodium 2 Gm Vial) 2 gm IVPUSH Q24H [facility] Last Admin: 09/24/24 14:25 Dose: 2 gm Documented By: MADDIE Enoxaparin Sodium (Enoxaparin Sodium 40 Mg/0.4 Ml Syringe) 40 mg SUBCUT Q24H [facility] Last Admin: 09/24/24 21:45 Dose: 40 mg Documented By: GERARDO Glucose (Glucose Gel 15 Gm Gel..Gram.) 15 gm PO Q15M PRN; Protocol PRN Reason: per Hypoglycemia Standing Ord. Dextrose (D10) 250 mls @ 750 mls/hr IV Q15M PRN; Protocol PRN Reason: per Hypoglycemia Standing Ord. Insulin Glargine (Insulin Glargine,Hum.Rec.Anlog 100 Unit/Ml 10 Ml Vial) 32 unit SUBCUT BEDTIME [facility] Last Admin: 09/24/24 21:46 Dose: 32 unit Documented By: GERARDO Insulin Human Lispro (Insulin Lispro 100 Unit/Ml 3 Ml Vial) 0 unit SUBCUT QIDACHS [facility]; Protocol Last Admin: 09/25/24 11:25 Dose: 4 unit Documented By: NOEL Magnesium Hydroxide (Milk Of Magnesia 30 Ml Oral.Susp) 30 ml PO DAILY PRN PRN Reason: Constipation Melatonin (Melatonin 3 Mg Tablet) 6 mg PO BEDTIME PRN PRN Reason: Insomnia Morphine Sulfate (Morphine Sulfate 4 Mg/Ml Cartridge) 4 mg IVPUSH Q4H PRN; Protocol PRN Reason: Pain, Severe (Pain Scale 7-10) Last Admin: 09/25/24 11:28 Dose: 4 mg Documented By: NOEL Ondansetron HCl (Ondansetron Hcl 4 Mg/2 Ml Vial) 4 mg IVPUSH Q4H PRN PRN Reason: Nausea and Vomiting Last Admin: 09/23/24 00:59 Dose: 4 mg Documented By: GERARDO Potassium Chloride (Potassium Chloride Packet 20 Meq Packet) 40 meq PO BID [facility] Stop: 09/25/24 21:01 Last Admin: 09/25/24 07:59 Dose: 40 meq Documented By: NOEL Sodium Chloride (0.9 % Sodium Chloride Flush 3 Ml Syringe) 3 ml IVFLUSH QSHIFT [facility] Last Admin: 09/25/24 07:32 Dose: Not Given Documented By: NOEL Non-Admin Reason: IV Running Labs 09/25/24 06:18 09/25/24 06:18 Labs: Laboratory Results - last 24 hr 09/24/24 09/24/24 09/25/24 16:32 20:10 06:18 MCV 89.7 MCH 31.9 MCHC 35.6 H RDW 12.7 Plt Count 129 L MPV 12.3 Immature Gran % (Auto) 1.5 H Neut % (Auto) 82.5 H Lymph % (Auto) 6.6 L [place] % (Auto) 8.0 Eos % (Auto) 1.0 Baso % (Auto) 0.4 Lymph # (Auto) 1.6 [place] # (Auto) 1.9 H Eos # (Auto) 0.2 Baso # (Auto) 0.1 Abs Immat Gran (auto) 0.36 H Absolute Neuts (auto) 19.5 H Absolute Nucleated RBC 0.000 Nucleated RBC % (auto) 0.0 Smear Tech's Comments VERIFIED Anion Gap 13 Estim Creat Clear Calc 69.6 Estimated GFR > 60 POC Glucose 134 H 223 H Random Glucose 170 H Calcium 8.7 Magnesium 1.9 09/25/24 09/25/24 07:14 11:08 MCV MCH MCHC RDW Plt Count MPV Immature Gran % (Auto) Neut % (Auto) Lymph % (Auto) [place] % (Auto) Eos % (Auto) Baso % (Auto) Lymph # (Auto) [place] # (Auto) Eos # (Auto) Baso # (Auto) Abs Immat Gran (auto) Absolute Neuts (auto) Absolute Nucleated RBC Nucleated RBC % (auto) Smear Tech's Comments Anion Gap Estim Creat Clear Calc Estimated GFR POC Glucose 147 H 213 H Random Glucose Calcium Magnesium Microbiology Microbiology Results: Microbiology 09/21/24 19:45 Blood Culture - Final Blood - Venous Escherichia coli 09/21/24 19:45 Blood Culture - Final Blood - Venous Escherichia coli Assessment and Plan (1) Sepsis: Status: Acute (2) Pyelonephritis of right kidney: Status: Acute (3) Acute respiratory failure with hypoxia: Status: Acute Plan 53-year-old female with pertinent history of insulin-dependent diabetes mellitus, mixed hyperlipidemia who presents to the emergency department for evaluation of abdominal pain. severe sepsis due to e.coli bacteremia secondary to pyelo urine and blood cultures growing e.coli, will transition to IV ceftriaxone, will need 14 days of tx on discharge white count beginning to trend down, remains tachy acute hypoxic respiratory failure overall net +since admission likely due to fluid overload from IVF for sepsis will stop IVF and give dose of IV lasix - monitor for effect continue supplemental oxygen as needed incentive spirometry Hydronephrosis urology consultation - no need to stenting at this time recommend follow up renal US in 3 months anemia no evidence of acute blood loss follow CBC, H/H stable thrombocytopenia likely due to sepsis platelet level stable JACINTA. resolved. mild hyponatremia in part due to hyperglycemia follow BMP hypokalemia replaced follow BMP Insulin-dependent diabetes mellitus with hyperglycemia hold metformin continue SSI, lantus Obesity. BMI 28.3 Counseled regarding diet and exercise DVT prophylaxis: Lovenox Attending Dr. Klein Full code Patient requires ongoing inpatient stay for IV antibiotics for treatment of sepsis due to pyelonephritis and likely fluid overload causing respiratory failure requiring IV Lasix Quality Stroke Does the patient have a stroke diagnosis?: No VTE Prior VTE?: No VTE Risk Level:: Medical - moderate - high VTE Device Contraindication: Treatment Not Indicated VTE Drug Contraindication: N/A - Med Ordered
[2024-09-25] MEDS: Furosemide 40 MG/4 ML VIAL IVPUSH (14:28)
[2024-09-25] MEDS: cefTRIAXone sodium 2 GM VIAL IVPUSH (14:30)
[2024-09-25] MEDS: 0.9 % Sodium Chloride Flush 3 ML SYRINGE IVFLUSH ×2 (14:37→23:52)
[2024-09-25 15:45] VITALS: BP 146/73; PULSE 108; RESP 20; TEMP 36.8; O2SAT 93
[2024-09-25 16:10] LABS: Glucose, Whole Blood 200 mg/dL (60-115)
[2024-09-25 19:34] VITALS: BP 139/65; PULSE 105; RESP 18; TEMP 37.3; O2SAT 93
[2024-09-25] MEDS: Acetaminophen 325 MG TABLET 650 MG PO (20:10)
[2024-09-25 20:44] LABS: Glucose, Whole Blood 201 mg/dL (60-115)
[2024-09-25] MEDS: Insulin Glargine,Hum.rec.anlog 100 UNIT/ML 10 ML VIAL 32 UNIT SUBCUT (21:45)
[2024-09-25] MEDS: Enoxaparin Sodium 40 MG/0.4 ML SYRINGE SUBCUT (21:47)
[2024-09-26 04:00] VITALS: BP 132/67; PULSE 97; RESP 16; TEMP 36.1; O2SAT 95
--- NOTE | 2024-09-26 07:00 | CA_ITS ---
Transthoracic Echocardiogram Patient (Last, First, Middle): Jill Cho, Gender: Female Date of : 1970 Age: 52 Procedure Date: 09/26/2024 Procedure Type: Transthoracic Echocardiogram Location: S3E Height: 152.4 cm Weight: 65.77 kg BSA: 1.63 m2 Heart Rate: bpm BP: 166 / 87 mmHg Proof Load Mechanic: JEFRY Referring MD: Glenroy Maza DO Symptoms: SHortness of breath Study Quality: Fair/Contrast ECG Rhythm: Sinus Conclusions: - The left ventricular systolic function is normal. The calculated ejection fraction is 59% by biplane method. - No obvious valvular pathology seen on this study. Findings Procedure Information Contrast agent, definity, is being given per protocol without apparent complications. Left Ventricle Normal left ventricular cavity size. There is normal left ventricular wall thickness. The left ventricular systolic function is normal. The calculated ejection fraction is 59% by biplane method. There is no evidence of regional wall motion abnormalities. Diastolic function is normal for age. Right Ventricle Mildly increased right ventricular cavity size. There is normal right ventricular systolic function. Atria Both atria are normal in size. Aortic Valve There is a normal trileaflet aortic valve. There is no aortic valve stenosis. There is no aortic valve regurgitation. Mitral Valve The mitral valve appears normal. There is no mitral valve regurgitation. There is no mitral valve stenosis. Pulmonic Valve The pulmonic valve is likely normal. Tricuspid Valve There is trace tricuspid valve regurgitation. There is no evidence of pulmonary hypertension. Great Vessels The asc aorta and aortic arch are normal in size. Venous The inferior vena cava is normal in size and collapses greater than 50% with inspiration. Pericardium/Pleural There is no evidence of pericardial effusion. Prior Study Comparison No prior study available for comparison. Recommendations, Care & Conclusions No obvious valvular pathology seen on this study. Measurements 2D Linear Measurements IVSd: 0.77 0.6-0.9/0.6-1.0 cm LVIDd: 4.07 3.9-5.3/4.2-5.9 cm LVIDd Index: 2.50 2.4-3.2/2.2-3.1 cm/m2 LVIDs: 2.64 2.0-3.6 cm LVPWd: 0.79 0.7-1.1 cm Ao Root: 2.70 2.1-3.5 cm LA Diam: 2.80 2.7-3.8/3.0-4.0 cm LAIDs Index: 1.72 1.5-2.3 cm/m2 LV Mass: 115.48 67-162/88-224 g LV Mass Index: 70.84 43-95/49-115 g/m2 LVOT Diam: 2.00 3.0+(-)1.3 cm 2D Systolic Function EF 4C: 55.70 >55% EF 2C: 61.70 >55% EF BiP: 59.20 >55% Mitral Valve MV Pk E: 0.99 MV PK A: 0.93 MV Decel Time: 167.00 E/A: 1.10 E'Lateral: 10.40 E'Medial: 7.62 E/E' Med: 12.90 E/E' Lat: 9.50 PHT: 49.00 MVA PHT: 4.49 Decel [place]: 5.90 Aortic Valve AoV Pk Isaias: 1.42 AoV Mn Isaias: 0.85 AoV VTI: 0.21 AoV Pk Grad: 8.00 Aov Mn Grad: 3.00 JUANA Cont.VTI: 2.51 LVOT LVOT Pk Isaias: 0.92 LVOT Mn Isaias: 0.68 LVOT VTI: 0.17 LVOT Pk Grad: 3.00 LVOT Mn Grad: 2.00 LVOT Diam: 2.00 LVOT Area: 3.14 Diastolic Function MV Pk E: 0.99 MV Pk A: 0.93 E/A: 1.10 E'Medial: 7.62 E/E' Med: 12.90 E' Laterial: 10.40 E/E' Lat: 9.50 Right Ventricle TAPSE (mm): 25.00 TVS' Isaias: 13.80 Tricuspid Valve TR Pk Isaias: 2.46 TR Pk Grad: 24.00 RA Press: 3.00 RVSP: 27.00 Great Vessels Aorta Ao Root-2D: 2.70 2.0-3.7 cm Ao Asc: 2.90 2.1-3.4 cm Ao Arch: 2.70 Updated in Other Vendor System with Status of Final John Duckworth MD electronically signed on 09/26/2024 4:24:56 PM with status of Final
[2024-09-26 07:19] LABS: Glucose, Whole Blood 110 mg/dL (60-115)
[2024-09-26] MEDS: 0.9 % Sodium Chloride Flush 3 ML SYRINGE IVFLUSH ×3 (07:30→23:55)
[2024-09-26] MEDS: Acetaminophen 325 MG TABLET 650 MG PO ×3 (07:34→22:29)
[2024-09-26 08:00] VITALS: BP 166/87; PULSE 102; RESP 16; TEMP 36.5; O2SAT 94
[2024-09-26 10:21] LABS: Basophils Absolute Auto 0.1 X10*3/uL (0.0-0.2); Basophils Percent Auto 0.4 % (0-2); Eosinophils Absolute Auto 0.3 X10*3/uL (0.0-0.4); Eosinophils Percent Auto 1.5 % (0-4); Hematocrit 30.5 % (37.0-47.0); Hemoglobin 10.6 g/dl (12.0-16.0); Imm Gran Abs Auto 0.72 X10*3/uL (0.00-0.03); Imm Gran Pct Auto 3.4 % (0.0-0.4); Lymphocytes Absolute Auto 1.9 X10*3/uL (1.2-4.9); Lymphocytes Percent Auto 9.1 % (20-40); MANUAL DIFF FLAG SCAN; Mean Corpuscular HGB Conc 34.8 g/dl (31.0-35.0); Mean Corpuscular Hemoglobin 31.5 pg (27.0-33.0); Mean Corpuscular Volume 90.8 fL (80.0-98.0); Mean Platelet Volume 12.2 fL (9.4-12.3); Monocytes Absolute Auto 2.2 X10*3/uL (0.1-1.2); Monocytes Percent Auto 10.3 % (2-11); Neutrophils Absolute Auto 15.7 x10*3/uL (2.0-8.3); Neutrophils Percent Auto 75.3 % (45-73); Platelet Count 168 X10*3/uL (160-400); Red Blood Count 3.36 X10*6/uL (4.20-5.50); SCAN SMEAR FLAG 1; White Blood Count 20.9 X10*3/uL (4.8-10.8)
[2024-09-26] MEDS: Morphine Sulfate 4 MG/ML CARTRIDGE IVPUSH (10:22)
[2024-09-26 10:35] LABS: Anion Gap 15 (12-20); Blood Urea Nitrogen 15 mg/dL (9-16); Calcium 8.7 mg/dL (8.4-10.2); Carbon Dioxide 23 mmol/L (22-29); Chloride 103 mmol/L (96-108); Creatinine Clr Calc Pharmacy 77.4; Estimated Glomerular Filt Rate > 60; Glucose Random 146 mg/dL (60-115); Potassium 3.6 mmol/L (3.3-5.1); Sodium 137 mmol/L (135-145)
[2024-09-26 10:50] LABS: SLIDE REVIEW VERIFIED
[2024-09-26 11:18] LABS: Glucose, Whole Blood 169 mg/dL (60-115)
--- NOTE | 2024-09-26 11:42 | HO.PM.IMPN ---
Subjective Subjective Date of Service: 09/26/24 Interval History: Still with mild shortness of breath at rest. Minimal response to Lasix Review of Systems Denies chest pain Admits shortness of breath Denies nausea vomiting diarrhea Denies fever chills Physical Exam Vital Signs: Vital Signs: Last Vital Signs Temp 97.7 F 09/26/24 08:00 Pulse 102 H 09/26/24 08:00 Resp 16 09/26/24 08:00 BP 166/87 H 09/26/24 08:00 Pulse Ox 94 09/26/24 08:00 O2 Del Method Nasal Cannula 09/26/24 08:00 O2 Flow Rate 3 09/26/24 08:00 BMI result Body Mass Index 28.3 Const: Other: Awake alert no acute distress lying quietly in bed Resp: Other: Bilateral basilar crackles Cardio: Other: No S4; positive S1-S2; no S3 murmurs rubs or gallops GI: Other: Soft nontender nondistended normoactive bowel sounds Extrem: Other: No edema bilaterally Objective Data Active Medications Acetaminophen (Acetaminophen 325 Mg Tablet) 650 mg PO Q6H PRN PRN Reason: Pain, Mild (Pain Scale 1-3), fever or headache Last Admin: 09/26/24 07:34 Dose: 650 mg Documented By: PIETRO Albuterol/Ipratropium (Albuterol/Iprat 2.5/0.5mg 3 Ml Ampul.Neb) 3 ml INHALE Q4H PRN PRN Reason: Wheezing Last Admin: 09/24/24 15:13 Dose: 3 ml Documented By: DONIS Calcium Carbonate (Calcium Carbonate 750 Mg Tab.Chew) 750 mg PO Q4H PRN PRN Reason: Heartburn Ceftriaxone Sodium (Ceftriaxone Sodium 2 Gm Vial) 2 gm IVPUSH Q24H [facility] Last Admin: 09/25/24 14:30 Dose: 2 gm Documented By: NOEL Enoxaparin Sodium (Enoxaparin Sodium 40 Mg/0.4 Ml Syringe) 40 mg SUBCUT Q24H [facility] Last Admin: 09/25/24 21:47 Dose: 40 mg Documented By: DANISHA Glucose (Glucose Gel 15 Gm Gel..Gram.) 15 gm PO Q15M PRN; Protocol PRN Reason: per Hypoglycemia Standing Ord. Dextrose (D10) 250 mls @ 750 mls/hr IV Q15M PRN; Protocol PRN Reason: per Hypoglycemia Standing Ord. Insulin Glargine (Insulin Glargine,Hum.Rec.Anlog 100 Unit/Ml 10 Ml Vial) 32 unit SUBCUT BEDTIME [facility] Last Admin: 09/25/24 21:45 Dose: 32 unit Documented By: DANISHA Insulin Human Lispro (Insulin Lispro 100 Unit/Ml 3 Ml Vial) 0 unit SUBCUT QIDACHS [facility]; Protocol Last Admin: 09/26/24 07:28 Dose: Not Given Documented By: PIETRO Non-Admin Reason: No Insulin Coverage Magnesium Hydroxide (Milk Of Magnesia 30 Ml Oral.Susp) 30 ml PO DAILY PRN PRN Reason: Constipation Melatonin (Melatonin 3 Mg Tablet) 6 mg PO BEDTIME PRN PRN Reason: Insomnia Morphine Sulfate (Morphine Sulfate 4 Mg/Ml Cartridge) 4 mg IVPUSH Q4H PRN; Protocol PRN Reason: Pain, Severe (Pain Scale 7-10) Last Admin: 09/26/24 10:22 Dose: 4 mg Documented By: PIETRO Ondansetron HCl (Ondansetron Hcl 4 Mg/2 Ml Vial) 4 mg IVPUSH Q4H PRN PRN Reason: Nausea and Vomiting Last Admin: 09/23/24 00:59 Dose: 4 mg Documented By: GERARDO Sodium Chloride (0.9 % Sodium Chloride Flush 3 Ml Syringe) 3 ml IVFLUSH [facility] Last Admin: 09/26/24 07:30 Dose: 3 ml Documented By: PIETRO Labs 09/26/24 10:03 09/26/24 10:03 Labs: Laboratory Results - last 24 hr 09/25/24 09/25/24 09/26/24 16:06 20:30 07:11 MCV MCH MCHC RDW Plt Count MPV Immature Gran % (Auto) Neut % (Auto) Lymph % (Auto) [place] % (Auto) Eos % (Auto) Baso % (Auto) Lymph # (Auto) [place] # (Auto) Eos # (Auto) Baso # (Auto) Abs Immat Gran (auto) Absolute Neuts (auto) Absolute Nucleated RBC Nucleated RBC % (auto) Smear Tech's Comments Anion Gap Estim Creat Clear Calc Estimated GFR POC Glucose 200 H 201 H 110 Random Glucose Calcium 09/26/24 09/26/24 10:03 11:08 MCV 90.8 MCH 31.5 MCHC 34.8 RDW 13.0 Plt Count 168 D MPV 12.2 Immature Gran % (Auto) 3.4 H Neut % (Auto) 75.3 H Lymph % (Auto) 9.1 L [place] % (Auto) 10.3 Eos % (Auto) 1.5 Baso % (Auto) 0.4 Lymph # (Auto) 1.9 [place] # (Auto) 2.2 H Eos # (Auto) 0.3 Baso # (Auto) 0.1 Abs Immat Gran (auto) 0.72 H Absolute Neuts (auto) 15.7 H Absolute Nucleated RBC 0.000 Nucleated RBC % (auto) 0.0 Smear Tech's Comments VERIFIED Anion Gap 15 Estim Creat Clear Calc 77.4 Estimated GFR > 60 POC Glucose 169 H Random Glucose 146 H Calcium 8.7 Assessment and Plan (1) Sepsis: Status: Acute (2) Pyelonephritis of right kidney: Status: Acute (3) Acute respiratory failure with hypoxia: Status: Acute Plan 53-year-old female with pertinent history of insulin-dependent diabetes mellitus, mixed hyperlipidemia who presents to the emergency department for evaluation of abdominal pain; workup consistent with right-sided pyelonephritis. 1.Severe sepsis due to e.coli bacteremia/pyelonephritis(sepsis resolved) -Ceftriaxone, will need 14 days of tx of Ceftin upon D/C -white count continues downward trend -follow daily CBC 2.Acute hypoxic respiratory failure query secondary to volume overload -Lasix 40mg x 1 today -2D echo -strict I/Os 3.Hydronephrosis -out patient follow up 4.JACINTA/Hyponatremia -resolved -follow renals/divalents 5.Insulin-dependent diabetes mellitus -acceptable control on current therapies -lispro correctional scale -add back metformin on discharge Lovenox Full code Patient requires ongoing inpatient stay for IV antibiotics for treatment of sepsis due to pyelonephritis and likely fluid overload causing respiratory failure requiring IV Lasix Quality Stroke Does the patient have a stroke diagnosis?: No VTE Prior VTE?: No VTE Risk Level:: Medical - moderate - high VTE Device Contraindication: Treatment Not Indicated VTE Drug Contraindication: N/A - Med Ordered
[2024-09-26] MEDS: Insulin Lispro 100 UNIT/ML 3 ML VIAL SUBCUT ×3 (12:02→20:18)
[2024-09-26] MEDS: Furosemide 40 MG/4 ML VIAL IVPUSH (12:02)
--- NOTE | 2024-09-26 13:16 | MHC.CM.PN ---
Per MD rounds no discharge today. Patient continues with Crackles. She requires further diuresis. DP home no services via private transport.
[2024-09-26] MEDS: cefTRIAXone sodium 2 GM VIAL IVPUSH (13:36)
[2024-09-26 15:53] VITALS: BP 138/67; PULSE 101; RESP 20; TEMP 36.9; O2SAT 96
[2024-09-26 16:16] LABS: Glucose, Whole Blood 161 mg/dL (60-115)
[2024-09-26 19:46] LABS: Glucose, Whole Blood 152 mg/dL (60-115)
[2024-09-26 20:00] VITALS: BP 137/71; PULSE 107; RESP 16; TEMP 36.1; O2SAT 94
[2024-09-26] MEDS: Insulin Glargine,Hum.rec.anlog 100 UNIT/ML 10 ML VIAL 32 UNIT SUBCUT (20:17)
[2024-09-26] MEDS: Enoxaparin Sodium 40 MG/0.4 ML SYRINGE SUBCUT (21:21)
[2024-09-27 03:03] VITALS: BP 116/59; PULSE 106; RESP 16; TEMP 36.3; O2SAT 96
[2024-09-27 06:37] LABS: Hematocrit 28.9 % (37.0-47.0); Hemoglobin 10.1 g/dl (12.0-16.0); Mean Corpuscular HGB Conc 34.9 g/dl (31.0-35.0); Mean Corpuscular Hemoglobin 31.3 pg (27.0-33.0); Mean Corpuscular Volume 89.5 fL (80.0-98.0); Mean Platelet Volume 11.9 fL (9.4-12.3); Platelet Count 184 X10*3/uL (160-400); Red Blood Count 3.23 X10*6/uL (4.20-5.50); Red Cell Distribution Width 13.1 % (11.0-16.0); White Blood Count 22.1 X10*3/uL (4.8-10.8)
[2024-09-27 06:57] LABS: Alanine Aminotransferase 26 U/L (0-31); Albumin Level 2.4 g/dL (3.5-5.0); Alkaline Phosphatase 349 U/L (39-117); Anion Gap 12 (12-20); Aspartate Amino Transferase 52 U/L (5-31); Bilirubin Total 0.9 mg/dL (0.0-1.0); Blood Urea Nitrogen 11 mg/dL (9-16); Calcium 8.3 mg/dL (8.4-10.2); Carbon Dioxide 27 mmol/L (22-29); Chloride 101 mmol/L (96-108); Creatinine Clr Calc Pharmacy 71.4; Estimated Glomerular Filt Rate > 60; Glucose Fasting 138 mg/dL (60-99); Potassium 3.3 mmol/L (3.3-5.1); Sodium 137 mmol/L (135-145); Total Protein 6.2 g/dL (6.5-8.0)
[2024-09-27 07:13] LABS: Band Neutrophils Percent 2 % (3-5); Eosinophils Absolute Manual 0.7 X10*3/uL (0.0-0.4); Eosinophils Percent Manual 3 % (0-4); Lymphocytes Absolute Manual 0.7 X10*3/uL (1.2-4.9); Lymphocytes Percent Manual 3 % (20-40); Monocytes Absolute Manual 0.9 X10*3/uL (0.1-1.2); Monocytes Percent Manual 4 % (2-11); Neutrophils Absolute Manual 19.9 X10*3/uL (2.0-8.3); Neutrophils Percent Manual 88 % (45-73)
[2024-09-27 07:14] LABS: Large Platelet PRESENT; Platelet Estimate NORMAL (NORMAL); Platelet Morphology Comment NOTED; RBC Morphology NOTED; Stomatocytes 1+ (5-14) /OIF
[2024-09-27 07:15] VITALS: BP 118/56; PULSE 66; RESP 18; TEMP 36.3; O2SAT 97
[2024-09-27 07:16] VITALS: BP 108/75; PULSE 77; RESP 16; TEMP 36.3; O2SAT 96
[2024-09-27] MEDS: Acetaminophen 325 MG TABLET 650 MG PO ×2 (07:32→17:08)
[2024-09-27 07:40] LABS: Glucose, Whole Blood 149 mg/dL (60-115)
[2024-09-27] MEDS: 0.9 % Sodium Chloride Flush 3 ML SYRINGE IVFLUSH ×3 (07:42→20:14)
[2024-09-27 09:59] VITALS: PULSE 95
[2024-09-27 11:19] LABS: Glucose, Whole Blood 223 mg/dL (60-115)
[2024-09-27 11:28] LABS: Glucose, Whole Blood 200 mg/dL (60-115)
[2024-09-27] MEDS: Insulin Lispro 100 UNIT/ML 3 ML VIAL SUBCUT ×3 (11:35→20:13)
--- NOTE | 2024-09-27 12:48 | P.PNIM_ITS ---
Subjective Subjective Date of Service: 09/27/24 Interval History: Still fatigued. Ambulatory to be are without issue Review of Systems Denies chest pain Admits shortness of breath Denies nausea vomiting diarrhea Denies fever chills Physical Exam 2 Vital Signs: Vital Signs: Last Vital Signs Temp 97.4 F 09/27/24 07:16 Pulse 95 09/27/24 09:59 Resp 16 09/27/24 07:16 BP 108/75 09/27/24 07:16 Pulse Ox 96 09/27/24 07:16 O2 Del Method Nasal Cannula 09/27/24 07:16 O2 Flow Rate 3 09/27/24 07:16 BMI result Body Mass Index 28.3 Const: Other: Awake alert no acute distress lying quietly in bed Resp: Other: Bilateral basilar crackles Cardio: Other: No S4; positive S1-S2; no S3 murmurs rubs or gallops GI: Other: Soft nontender nondistended normoactive bowel sounds Extrem: Other: No edema bilaterally Objective Data Active Medications Acetaminophen (Acetaminophen 325 Mg Tablet) 650 mg PO Q6H PRN PRN Reason: Pain, Mild (Pain Scale 1-3), fever or headache Last Admin: 09/27/24 07:32 Dose: 650 mg Documented By: NORY Albuterol/Ipratropium (Albuterol/Iprat 2.5/0.5mg 3 Ml Ampul.Neb) 3 ml INHALE Q4H PRN PRN Reason: Wheezing Last Admin: 09/24/24 15:13 Dose: 3 ml Documented By: DONIS Calcium Carbonate (Calcium Carbonate 750 Mg Tab.Chew) 750 mg PO Q4H PRN PRN Reason: Heartburn Ceftriaxone Sodium (Ceftriaxone Sodium 2 Gm Vial) 2 gm IVPUSH Q24H [facility] Last Admin: 09/26/24 13:36 Dose: 2 gm Documented By: DABEvelin Enoxaparin Sodium (Enoxaparin Sodium 40 Mg/0.4 Ml Syringe) 40 mg SUBCUT Q24H [facility] Last Admin: 09/26/24 21:21 Dose: 40 mg Documented By: KRISTINEASY Glucose (Glucose Gel 15 Gm Gel..Gram.) 15 gm PO Q15M PRN; Protocol PRN Reason: per Hypoglycemia Standing Ord. Dextrose (D10) 250 mls @ 750 mls/hr IV Q15M PRN; Protocol PRN Reason: per Hypoglycemia Standing Ord. Insulin Glargine (Insulin Glargine,Hum.Rec.Anlog 100 Unit/Ml 10 Ml Vial) 32 unit SUBCUT BEDTIME [facility] Last Admin: 09/26/24 20:17 Dose: 32 unit Documented By: AURELIO Insulin Human Lispro (Insulin Lispro 100 Unit/Ml 3 Ml Vial) 0 unit SUBCUT QIDACHS [facility]; Protocol Last Admin: 09/27/24 11:35 Dose: 2 unit Documented By: NORY Magnesium Hydroxide (Milk Of Magnesia 30 Ml Oral.Susp) 30 ml PO DAILY PRN PRN Reason: Constipation Melatonin (Melatonin 3 Mg Tablet) 6 mg PO BEDTIME PRN PRN Reason: Insomnia Ondansetron HCl (Ondansetron Hcl 4 Mg/2 Ml Vial) 4 mg IVPUSH Q4H PRN PRN Reason: Nausea and Vomiting Last Admin: 09/23/24 00:59 Dose: 4 mg Documented By: GERARDO Sodium Chloride (0.9 % Sodium Chloride Flush 3 Ml Syringe) [facility] Last Admin: 09/27/24 07:42 Dose: 3 ml Documented By: NORY Labs 09/27/24 05:24 09/27/24 05:24 Labs: Laboratory Results - last 24 hr 09/26/24 09/26/24 09/27/24 15:59 19:27 05:24 MCV 89.5 MCH 31.3 MCHC 34.9 RDW 13.1 Plt Count 184 MPV 11.9 Immature Gran % (Auto) Cancelled Neut % (Auto) Cancelled Lymph % (Auto) Cancelled [place] % (Auto) Cancelled Eos % (Auto) Cancelled Baso % (Auto) Cancelled Lymph # (Auto) Cancelled [place] # (Auto) Cancelled Eos # (Auto) Cancelled Baso # (Auto) Cancelled Abs Immat Gran (auto) Cancelled Absolute Neuts (auto) Cancelled Absolute Nucleated RBC 0.000 Nucleated RBC % (auto) 0.0 Neutrophils % (Manual) 88 H Band Neutrophils % 2 L Lymphocytes % (Manual) 3 L Monocytes % (Manual) 4 Eosinophils % (Manual) 3 Abs Neuts (Manual) 19.9 H Lymphocytes # (Manual) 0.7 L Monocytes # (Manual) 0.9 Eosinophils # (Manual) 0.7 H Platelet Estimate NORMAL Large Platelets PRESENT Plt Morphology Comment NOTED RBC Morphology NOTED Stomatocytes 1+ (5-14) Anion Gap 12 Estim Creat Clear Calc 71.4 Estimated GFR > 60 POC Glucose 161 H 152 H Fasting Glucose 138 H Calcium 8.3 L Total Bilirubin 0.9 AST 52 H ALT 26 Alkaline Phosphatase 349 H Total Protein 6.2 L Albumin 2.4 L 09/27/24 09/27/24 09/27/24 07:09 11:12 11:21 MCV MCH MCHC RDW Plt Count MPV Immature Gran % (Auto) Neut % (Auto) Lymph % (Auto) [place] % (Auto) Eos % (Auto) Baso % (Auto) Lymph # (Auto) [place] # (Auto) Eos # (Auto) Baso # (Auto) Abs Immat Gran (auto) Absolute Neuts (auto) Absolute Nucleated RBC Nucleated RBC % (auto) Neutrophils % (Manual) Band Neutrophils % Lymphocytes % (Manual) Monocytes % (Manual) Eosinophils % (Manual) Abs Neuts (Manual) Lymphocytes # (Manual) Monocytes # (Manual) Eosinophils # (Manual) Platelet Estimate Large Platelets Plt Morphology Comment RBC Morphology Stomatocytes Anion Gap Estim Creat Clear Calc Estimated GFR POC Glucose 149 H 223 H 200 H Fasting Glucose Calcium Total Bilirubin AST ALT Alkaline Phosphatase Total Protein Albumin Assessment and Plan (1) Sepsis: Status: Acute (2) E coli bacteremia: Status: Acute (3) Insulin dependent type 2 diabetes mellitus: Status: Acute Plan 53-year-old female with pertinent history of insulin-dependent diabetes mellitus, mixed hyperlipidemia who presents to the emergency department for evaluation of abdominal pain; workup consistent with right-sided pyelonephritis. 1.Severe sepsis due to e.coli bacteremia/pyelonephritis(sepsis resolved) -Ceftriaxone, will need 14 days of tx of Ceftin upon D/C -white count continues to be elevated -follow daily CBC... May need additional imaging 2.Acute hypoxic respiratory failure query secondary to volume overload -Lasix 40mg x 1 today -2D echo -strict I/Os -wean O2 3.Hydronephrosis -out patient follow up 4.JACINTA/Hyponatremia -resolved -follow renals/divalents 5.Insulin-dependent diabetes mellitus -acceptable control on current therapies -lispro correctional scale -add back metformin on discharge Lovenox Full code Patient requires ongoing inpatient stay for IV antibiotics for treatment of sepsis due to pyelonephritis and likely fluid overload causing respiratory failure requiring IV Lasix Quality Stroke Does the patient have a stroke diagnosis?: No VTE Prior VTE?: No VTE Risk Level:: Medical - moderate - high VTE Device Contraindication: Treatment Not Indicated VTE Drug Contraindication: N/A - Med Ordered
[2024-09-27] MEDS: cefTRIAXone sodium 2 GM VIAL IVPUSH (15:03)
[2024-09-27 15:12] VITALS: BP 116/55; PULSE 100; RESP 14; TEMP 36.3; O2SAT 100
[2024-09-27 16:19] LABS: Glucose, Whole Blood 242 mg/dL (60-115)
[2024-09-27 19:59] LABS: Glucose, Whole Blood 231 mg/dL (60-115)
[2024-09-27 20:00] VITALS: BP 103/51; PULSE 100; RESP 18; TEMP 36.8; O2SAT 95
[2024-09-27] MEDS: Enoxaparin Sodium 40 MG/0.4 ML SYRINGE SUBCUT (20:13)
[2024-09-27] MEDS: Insulin Glargine,Hum.rec.anlog 100 UNIT/ML 10 ML VIAL 32 UNIT SUBCUT (20:13)
[2024-09-28 03:43] VITALS: BP 110/53; PULSE 97; RESP 20; TEMP 37.1; O2SAT 96
[2024-09-28 07:14] VITALS: BP 136/63; PULSE 99; RESP 14; TEMP 37; O2SAT 94
[2024-09-28 07:32] LABS: Glucose, Whole Blood 145 mg/dL (60-115)
[2024-09-28 07:36] LABS: Hematocrit 28.5 % (37.0-47.0); Hemoglobin 9.8 g/dl (12.0-16.0); Mean Corpuscular HGB Conc 34.4 g/dl (31.0-35.0); Mean Corpuscular Volume 90.2 fL (80.0-98.0); Mean Platelet Volume 11.8 fL (9.4-12.3); Platelet Count 245 X10*3/uL (160-400); Red Blood Count 3.16 X10*6/uL (4.20-5.50); Red Cell Distribution Width 13.2 % (11.0-16.0); White Blood Count 25.1 X10*3/uL (4.8-10.8)
[2024-09-28 07:58] LABS: Alanine Aminotransferase 25 U/L (0-31); Albumin Level 2.5 g/dL (3.5-5.0); Alkaline Phosphatase 351 U/L (39-117); Anion Gap 15 (12-20); Aspartate Amino Transferase 41 U/L (5-31); Bilirubin Total 0.9 mg/dL (0.0-1.0); Blood Urea Nitrogen 7 mg/dL (9-16); Calcium 8.3 mg/dL (8.4-10.2); Carbon Dioxide 26 mmol/L (22-29); Chloride 100 mmol/L (96-108); Creatinine Clr Calc Pharmacy 73.3; Estimated Glomerular Filt Rate > 60; Glucose Fasting 138 mg/dL (60-99); Potassium 3.3 mmol/L (3.3-5.1); Sodium 138 mmol/L (135-145); Total Protein 6.5 g/dL (6.5-8.0)
[2024-09-28 08:13] LABS: Band Neutrophils Percent 5 % (3-5); Hypochromasia 1+ (5-14) /OIF; Lymphocytes Absolute Manual 1.8 X10*3/uL (1.2-4.9); Lymphocytes Percent Manual 7 % (20-40); Monocytes Absolute Manual 1.3 X10*3/uL (0.1-1.2); Monocytes Percent Manual 5 % (2-11); Neutrophils Absolute Manual 22.1 X10*3/uL (2.0-8.3); Neutrophils Percent Manual 83 % (45-73); Platelet Estimate NORMAL (NORMAL); Platelet Morphology Comment NORMAL; RBC Morphology NOTED; Toxic Vacuolation PRESENT
--- NOTE | 2024-09-28 10:18 | PC.RT ---
Pt on RA at rest this am, SPO2 95%.
[2024-09-28 11:53] LABS: Glucose, Whole Blood 138 mg/dL (60-115)
--- NOTE | 2024-09-28 12:14 | PM.DS ---
DS: Providers Provider Date of Service: 09/28/24 Date of admission: 09/21/24 22:03 Date of discharge: 09/28/24 Primary care physician: SUZE Daniels Consults: 09/22/24 06:42 Consult to Infectious Diseases Routine Consulting Provider: [facility] Reason for consultation: gram negative bacteremia 09/23/24 09:05 Consult to Urology Routine Consulting Provider: [facility] Reason for consultation: hydronephrosis DS: Diagnosis Discharge Diagnosis (1) Sepsis: Status: Acute (2) E coli bacteremia: Status: Acute (3) Insulin dependent type 2 diabetes mellitus: Status: Acute DS: Summary Hospital Course Hospital Course: 53-year-old female with pertinent history of insulin-dependent diabetes mellitus, mixed hyperlipidemia who presents to the emergency department for evaluation of abdominal pain. Patient states she started having right-sided abdominal pain 1 day prior to presentation. It was in the right flank region going to the back, constant, progressive and without any relieving factors. No history of similar pains in the past. Did have a UTI many years ago. Has associated chills, nausea and nonbloody emesis. Denies dysuria but does have increased urinary frequency. No change in color or odor of urine that she noticed. No documented fever, chest pain, palpitations, shortness of breath, changes in bowel habits. In the emergency department, patient was found to be septic with white count 31.1. Imaging with right-sided pyelonephritis [facility] Admitted to general medical floor and started on ceftriaxone. Seen by Urology who reviewed CT scan and noted a concern for a papillary necrosis. Suggested IV antibiotics times 48 hours and if no improvement consider stenting.. Patient continued to improve and was seen by infectious disease for persistent elevated white count. Id agreed with therapies and felt that the persistent leukocytosis was not uncommon with pyelonephritis. Ultimately blood cultures and urine grew out E coli sensitive to Cipro; patient has been afebrile times 48 hours in his ready for discharge by her own account. Urology recommending Levaquin times 14 days . At this time she is medically acceptable for discharge and will follow up with Urology as scheduled Time Attestation Discharge Coordination Time (in mins): 35 Quality: Safe Use of Opioids Does Pt have an Active Cancer Diagnosis on the Problem List?: No Quality: Stroke Does the patient have a stroke diagnosis?: No Physical Exam Vital Signs: Vital Signs: Last Vital Signs Temp 98.6 F 09/28/24 07:14 Pulse 99 09/28/24 07:14 Resp 14 09/28/24 07:14 BP 136/63 09/28/24 07:14 Pulse Ox 94 09/28/24 07:14 O2 Del Method Nasal Cannula 09/28/24 07:14 O2 Flow Rate 3.0 09/28/24 07:14 BMI result Body Mass Index 28.3 Const: Other: Awake alert no acute distress lying quietly in bed Resp: Other: Bilateral basilar crackles Cardio: Other: No S4; positive S1-S2; no S3 murmurs rubs or gallops GI: Other: Soft nontender nondistended normoactive bowel sounds Extrem: Other: No edema bilaterally DS: Data Data Completed and Pending Labs on day of discharge: Laboratory Results - last 24 hr 09/27/24 09/27/24 09/28/24 16:16 19:53 06:24 WBC 25.1 H RBC 3.16 L Hgb 9.8 L Hct 28.5 L MCV 90.2 MCH 31.0 MCHC 34.4 RDW 13.2 Plt Count 245 D MPV 11.8 Immature Gran % (Auto) Cancelled Neut % (Auto) Cancelled Lymph % (Auto) Cancelled [place] % (Auto) Cancelled Eos % (Auto) Cancelled Baso % (Auto) Cancelled Lymph # (Auto) Cancelled [place] # (Auto) Cancelled Eos # (Auto) Cancelled Baso # (Auto) Cancelled Abs Immat Gran (auto) Cancelled Absolute Neuts (auto) Cancelled Absolute Nucleated RBC 0.000 Nucleated RBC % (auto) 0.0 Neutrophils % (Manual) 83 H Band Neutrophils % 5 Lymphocytes % (Manual) 7 L Monocytes % (Manual) 5 Abs Neuts (Manual) 22.1 H Lymphocytes # (Manual) 1.8 Monocytes # (Manual) 1.3 H Toxic Vacuolation PRESENT Platelet Estimate NORMAL Plt Morphology Comment NORMAL RBC Morphology NOTED Hypochromasia 1+ (5-14) Sodium 138 Potassium 3.3 Chloride 100 Carbon Dioxide 26 Anion Gap 15 BUN 7 L Creatinine 0.76 Estim Creat Clear Calc 73.3 Estimated GFR > 60 POC Glucose 242 H 231 H Fasting Glucose 138 H Calcium 8.3 L Total Bilirubin 0.9 AST 41 H ALT 25 Alkaline Phosphatase 351 H Total Protein 6.5 Albumin 2.5 L 09/28/24 09/28/24 07:12 11:25 WBC RBC Hgb Hct MCV MCH MCHC RDW Plt Count MPV Immature Gran % (Auto) Neut % (Auto) Lymph % (Auto) [place] % (Auto) Eos % (Auto) Baso % (Auto) Lymph # (Auto) [place] # (Auto) Eos # (Auto) Baso # (Auto) Abs Immat Gran (auto) Absolute Neuts (auto) Absolute Nucleated RBC Nucleated RBC % (auto) Neutrophils % (Manual) Band Neutrophils % Lymphocytes % (Manual) Monocytes % (Manual) Abs Neuts (Manual) Lymphocytes # (Manual) Monocytes # (Manual) Toxic Vacuolation Platelet Estimate Plt Morphology Comment RBC Morphology Hypochromasia Sodium Potassium Chloride Carbon Dioxide Anion Gap BUN Creatinine Estim Creat Clear Calc Estimated GFR POC Glucose 145 H 138 H Fasting Glucose Calcium Total Bilirubin AST ALT Alkaline Phosphatase Total Protein Albumin Discharge Plan Discharge Anticipated Discharge Date/Time: 09/28/24 12:06 Patient Disposition: Home, Self-Care Discharge Diagnosis: Pyelonephritis of right kidney Referrals: Richelle Jeong PA [Primary Care Provider] - 1 Week Discharge Medications: New levofloxacin 500 mg tablet 500 mg PO DAILY 14 Days Qty: 14 0RF Continued metformin 850 mg Tablet 850 mg PO BID insulin glargine [Lantus Solostar U-100 Insulin] 100 unit/mL (3 mL) insulin pen 40 unit subcut BEDTIME Discontinued naproxen 500 mg tablet 500 mg PO BID PRN (Reason: Pain) Discharge Orders: Discharge Order (Routine); Ordered 09/28/24 Ordered By: Glenroy Maza Diet: Advance to usual diet Activity on Discharge: As tolerated Stand Alone Forms: Patient Portal Discharge page Print Language: Niuean Care Plan Goals: Resume all medicines as taken before admission Health Concerns: Ceftin 500 mg twice daily times 14 days has been added to your regimen. Complete this course. Plan of Treatment: Follow up with PCP next available. Urology should call you with follow up appointment Assessment: See discharge summary
--- NOTE | 2024-09-28 12:33 | MHC.CM.PN ---
DP: PT HAS BEEN MEDICALLY CLEARED FOR DC HOME, NO SERVICES. PT HAS OWN RIDE HOME
== END 2024-09-28 13:22 | disposition home or self-care (01) | DRG 720 ==
LOC: HO.ED 22:32 → HO.EDOVER 22:37 → HO.S3 09-22 00:14
PROVIDERS: Nurse Practitioner Acute Care; Physician Assistant Medical; Student in an Organized Health Care Education/Training Program; Admitting Provider Student in an Organized Health Care Education/Training Program; Emergency Provider Internal Medicine; PCP Physician Assistant; Visit Provider Hospitalist
DX: A41.9 Sepsis, unspecified organism (principal); J96.01 Acute respiratory failure with hypoxia; E87.21 Acute metabolic acidosis; N17.9 Acute kidney failure, unspecified; N13.6 Pyonephrosis; E87.1 Hypo-osmolality and hyponatremia; B96.20 Unspecified Escherichia coli [E. coli] as the cause of diseases classified elsewhere; E11.65 Type 2 diabetes mellitus with hyperglycemia; E66.9 Obesity, unspecified; Z68.28 Body mass index [BMI] 28.0-28.9, adult; D69.59 Other secondary thrombocytopenia; E78.2 Mixed hyperlipidemia; F17.210 Nicotine dependence, cigarettes, uncomplicated; D64.9 Anemia, unspecified; R65.20 Severe sepsis without septic shock; Z71.6 Tobacco abuse counseling; Z20.822 Contact with and (suspected) exposure to COVID-19; Z79.4 Long term (current) use of insulin; Z79.84 Long term (current) use of oral hypoglycemic drugs; Z23 Encounter for immunization
CPT/HCPCS: 0241U; 36415; 71045; 74177; 80048; 80053; 81001; 82947; 83605; 83735; 85007; 85025; 85027; 87040; 87077; 87086; 87088; 87186; 87205; 90656; 93005; 93306; 94640; 99285; J0696; J1650; J1940; J2185; J2270; J2405; J2543; J7120; Q9957; Q9967

== ENCOUNTER → 2024-09-21 17:40 | Outpatient (BNV) | payer MEDICAID, SELFPAY | PROVIDERS: Admitting Provider Student in an Organized Health Care Education/Training Program; Emergency Provider Internal Medicine; PCP Physician Assistant; Visit Provider Internal Medicine Cardiovascular Disease | DX: R07.9 Chest pain, unspecified (principal) | CPT/HCPCS: 93010 ==

== ENCOUNTER → 2024-09-21 18:11 | Outpatient (BNV) | payer MEDICAID, SELFPAY | PROVIDERS: Emergency Provider Internal Medicine; PCP Physician Assistant; Visit Provider Student in an Organized Health Care Education/Training Program | DX: A41.9 Sepsis, unspecified organism (principal); R78.81 Bacteremia; B96.20 Unspecified Escherichia coli [E. coli] as the cause of diseases classified elsewhere; N12 Tubulo-interstitial nephritis, not specified as acute or chronic | CPT/HCPCS: 99222; 99232; 99239; 99499 ==

== ENCOUNTER 2024-09-21 22:03 | Outpatient (BNV) | payer MEDICAID, SELFPAY | END 2024-09-26 07:00 | PROVIDERS: Admitting Provider Student in an Organized Health Care Education/Training Program; Emergency Provider Internal Medicine; PCP Physician Assistant; Visit Provider Internal Medicine | DX: R06.02 Shortness of breath (principal) | CPT/HCPCS: 93306 ==

== ENCOUNTER → 2024-09-21 22:03 | Outpatient (BNV) | payer MEDICAID, SELFPAY | PROVIDERS: Admitting Provider Student in an Organized Health Care Education/Training Program; Emergency Provider Internal Medicine; PCP Physician Assistant; Visit Provider Urology | DX: N12 Tubulo-interstitial nephritis, not specified as acute or chronic (principal) | CPT/HCPCS: 99222; 99232 ==

== ENCOUNTER → 2024-09-21 22:03 | Outpatient (BNV) | payer MEDICAID, SELFPAY | PROVIDERS: Admitting Provider Student in an Organized Health Care Education/Training Program; Emergency Provider Internal Medicine; PCP Physician Assistant; Visit Provider Internal Medicine | DX: E11.9 Type 2 diabetes mellitus without complications (principal); Z79.4 Long term (current) use of insulin; A41.9 Sepsis, unspecified organism; N12 Tubulo-interstitial nephritis, not specified as acute or chronic | CPT/HCPCS: 99222 ==